=== PATIENT | female | born 1950 | race Caucasian/White ===

== ENCOUNTER 2017-11-12 11:47 | Outpatient (CLI) | payer MEDICARE, OTHER ==
[~2017-11-12] VITALS: Ht 154.9 cm; Wt 84.8 kg
[2017-11-12 11:00] VITALS: BP 86/52
[2017-11-12] MEDS ORDERED: NS IV 1000 ML 1,000 ML ONE (12:03)
[2017-11-12] MEDS ORDERED: ONDANSETRON 4 MG/2 ML (SDV) Z0FRAN ONE (12:04)
[2017-11-12 12:09] LABS: BILIRUBIN,URINE NEGATIVE (NEGATIVE); CLARITY,URINE CLEAR; COLOR,URINE YELLOW; GLUCOSE, URINE (UA) NEGATIVE (NEGATIVE); KETONES,URINE NEGATIVE (NEGATIVE); LEUKOCYTE ESTERASE ,URINE NEGATIVE (NEGATIVE); NITRITE,URINE NEGATIVE (NEGATIVE); PH,URINE 7 (5-9); PROTEIN,URINE 1+ (NEGATIVE); UROBILINOGEN,URINE 1 MG/DL (NORMAL)
[2017-11-12 12:18] LABS: BACTERIA,URINE TRACE /HPF; WBC,URINE RARE /HPF
--- NOTE | 2017-11-12 12:22 | Diagnostic Imaging Report ---
INDICATION: Shortness of breath and nausea. TIME OF EXAM: 12:11 PM COMPARISON: No prior studies are available for comparison. FINDINGS: The heart size is normal. The lungs appear clear. No infiltrate is identified. No effusion or pneumothorax is seen. IMPRESSION: No acute cardiopulmonary process is detected. Dictated by: Dictated on workstation # [id number]
[2017-11-12] MEDS ORDERED: ONDANSETRON 4 MG/2 ML (SDV) Z0FRAN IV PRN (12:45)
[2017-11-12] MEDS ORDERED: NS IV 1000 ML 1,000 ML IV ONE (12:45)
[2017-11-12] MEDS ORDERED: PANTOPRAZOLE 40 MG/10 ML (PROTONIX) VIAL ONE (14:35)
[2017-11-12] MEDS ORDERED: PANTOPRAZOLE 40 MG/10 ML (PROTONIX) VIAL IV ONE (14:45)
[2017-11-12 14:55] VITALS: BP 151/78
--- NOTE | 2017-11-12 15:25 | HISTORY AND PHYSICAL ---
DATE OF SERVICE: ATTENDING PRIMARY CARE PHYSICIAN: Edilson Sanchez DO HISTORY OF PRESENT ILLNESS: The patient is a 67-year-old female known to us. We have seen her several years ago for symptomatic cholelithiasis and status post a laparoscopic cholecystectomy. She reports that she initially developed pain in the lower quadrants of her abdomen, which is crampy in nature. She states that this was approximately 1 week ago and the pain got so bad that she was seen at an urgent care and she was started on Bactrim. She reports that she took 2 days of the Bactrim and the pain resolved, but she developed nausea and vomiting as well as diarrhea. Upon further questioning, she does report that she has had adverse reaction to Bactrim in the past. She states that she does not have any significant abdominal pain. Again, majority of her symptomatology comes as nausea and vomiting as well as diarrhea with her last episode this morning. She does not report any red blood per rectum or any dark tarry stools. She also does not report any hematemesis or coffee-ground emesis. She did have laboratory work done as well as a CT scan of the abdomen and pelvis yesterday, which appeared normal. Upon examination, she does again looked nauseous; however, does not have any abdominal pain. This may represent a gastroenteritis that may be from a viral etiology versus an atypical allergic reaction. The potential for colitis also does arise from taking previous antibiotics. PAST MEDICAL HISTORY: Hypertension, obstructive sleep apnea, degenerative joint disease, congestive heart failure. PAST SURGICAL HISTORY: Laparoscopic cholecystectomy, right knee arthroscopy, tubal ligation, tonsillectomy. ALLERGIES: To BACTRIM. MEDICATIONS: Losartan/hydrochlorothiazide 100/25 mg daily, lisinopril 10 mg daily, Levothyroxine 50 mcg daily, omeprazole 20 mg daily. SOCIAL HISTORY: Negative smoking, negative alcohol. FAMILY HISTORY: Mother had oropharyngeal cancer. Brother had prostate cancer. Father had myocardial infarction age 53. VITAL SIGNS: Stable and afebrile. REVIEW OF SYSTEMS: This is a well-nourished female, currently in no acute distress. She is not experiencing any shortness of breath or difficulty breathing. No chest pain, palpitations or diaphoresis. One-week history of nausea and vomiting as well as diarrhea. No red blood per rectum, no dark tarry stools. No fever or chills, no recent inadvertent weight loss. All other review of systems negative. PHYSICAL EXAMINATION: CHEST: Clear. A few scattered rales bilaterally. HEART: Regular, no murmurs. EXTREMITIES: +1/3 bilateral lower extremity edema. Negative Homans sign. HEENT: No scleral icterus. No cervical lymphadenopathy. ABDOMEN: Soft, nontender, nondistended. SKIN: Warm and dry. ASSESSMENT AND PLAN: A 67-year-old female with nausea, vomiting and diarrhea, most likely secondary to gastroenteritis versus atypical allergic reaction. The possibility of bacterial overgrowth of the colon also arises due to her previous antibiotic usage. We will proceed with outpatient IV hydration as well as IV Protonix. If she feels better and able to take in adequate amounts of oral liquids, we will discharge her home and start her on Protonix 40 mg daily as well as antinausea with Zofran and Phenergan p.r.n. We will also empirically treat her for a bacterial overgrowth of the colon with Flagyl. Job ID: [id number] DocumentID: [id number] Dictated Date: 11/12/2017 14:58:15 Factory Assembler Date: 11/12/2017 15:25:28 Dictated By: SRIRAM OLIVER MD [facility]
== END 2017-11-12 14:55 | disposition home or self-care (01) ==
LOC: SDC 11:47
PROVIDERS: ATTEND Nurse Practitioner Family
DX: R11.2 Nausea with vomiting, unspecified (principal); R19.7 Diarrhea, unspecified; E86.0 Dehydration; R06.02 Shortness of breath; R53.83 Other fatigue
CPT/HCPCS: 71045; 81000; 96361; 96374; 96375

== ENCOUNTER → 2020-08-09 | Outpatient (CLI) | payer MEDICARE ==
[~2020-08-09] MED LIST: CATHETER FLUSH 10 ML SYR IV PRN; HOLD METFORMIN - RECEIVED CONTRAST 20 ML VIAL IV SCH; IOHEXOL 350 MG/ML 100 ML (OMNIPAQUE 350) VIAL IV ONE; NS 100 ML (IVPB) BAG IV ONE
--- NOTE | 2020-08-09 12:59 | Diagnostic Imaging Report ---
PROCEDURE: CT chest with contrast, CT abdomen and pelvis with and without contrast. TECHNIQUE: Pre and post intravenous contrast axial imaging of the abdomen and pelvis and post contrast axial imaging of the chest were performed. Auto Exposure Controls were utilized during the CT exam to meet ALARA standards for radiation dose reduction. INDICATION: Breast cancer. No prior studies are available for comparison. CT CHEST: 1. No definite axillary lymphadenopathy is identified. No mediastinal or hilar lymphadenopathy is detected. No pericardial or pleural fluid is identified. No pulmonary infiltrates, nodules or masses are detected. Bony structures are unremarkable. IMPRESSION: Unremarkable CT of the chest. CT ABDOMEN AND PELVIS: No focal liver mass is identified. Gallbladder surgically absent. There is no biliary ductal dilatation. The pancreas and spleen are unremarkable. No adrenal mass is detected. Kidneys are unremarkable. Aorta is partially calcified but nonaneurysmal. There are normal-sized lymph nodes in the central right retroperitoneum. No adenopathy is identified. Small and large bowel loops are normal caliber. There is moderate stool in the colon. There is no free fluid or fluid collection identified. The bladder and uterus are unremarkable. No pelvic lymphadenopathy is seen. No osteosclerotic lesions are seen. IMPRESSION: Unremarkable CT of the abdomen and pelvis. No lymphadenopathy or evidence of metastatic disease is identified. Dictated by: Dictated on workstation # [id number]
--- NOTE | 2020-08-09 18:35 | Diagnostic Imaging Report ---
INDICATION: Breast carcinoma. The patient was administered 26.7 mCi technetium 99m MDP intravenously and whole-body imaging was performed after a 3 hour delay. COMPARISON: No prior bone scans are available for comparison. There is normal uptake of activity by the axial and appendicular skeleton. There is uptake by both kidneys with excretion into the urinary bladder. There appears to be some degenerative uptake in the lower lumbar spine. There is degenerative uptake in the bilateral knees and feet. No suspicious focus is identified to suggest osseous metastatic disease. IMPRESSION: No scintigraphic evidence of osseous metastatic disease. Dictated by: Dictated on workstation # [id number]
== END ==
LOC: CARD 12:00
PROVIDERS: ATTEND Internal Medicine Hematology & Oncology
DX: C50.911 Malignant neoplasm of unspecified site of right female breast (principal); Z90.49 Acquired absence of other specified parts of digestive tract
CPT/HCPCS: 71260; 74178; 78306; A9503

== ENCOUNTER 2020-10-01 05:36 | Outpatient (CLI) | payer MEDICARE, OTHER ==
[~2020-10-01] VITALS: Ht 154.9 cm; Wt 77.3 kg
[2020-10-01] MEDS ORDERED: LETR2.5T6 PO (08:57)
[2020-10-01] MEDS ORDERED: LOSA1TAB26 PO (08:57)
[2020-10-01] MEDS ORDERED: LEVO50CA4 PO (08:57)
[2020-10-01] MEDS ORDERED: PANT40TA52 PO (08:57)
== END 2020-10-01 09:21 | disposition home or self-care (01) ==
LOC: PREOP 05:36
PROVIDERS: ATTEND Obstetrics & Gynecology
DX: Z01.818 Encounter for other preprocedural examination (principal)

== ENCOUNTER 2020-10-03 06:11 | Day surgery (SDC) | payer MEDICARE, OTHER ==
--- NOTE | 2020-09-26 07:08 | HISTORY AND PHYSICAL ---
DATE OF SERVICE: DATE OF ADMISSION: 10/03/2020. ADMITTING PRIMARY CARE PHYSICIAN: Edilson Sancehz DO. HISTORY OF PRESENT ILLNESS: The patient is a 70-year-old female, well known to us. She had a longstanding history of gastroesophageal reflux disease as well as dysphagia. She had multiple EGDs and was found to have a significant size hiatal hernia, 3 to 4 cm in size. She eventually did elect to undergo a laparoscopic hiatal hernia repair as well as a Toupet posterior 270-degree antireflux wrap on 09/12/2019. She was found to have a right breast mass, which she stated that she detected on her own. She stated that she had not had a mammogram for approximately three years. The lesion was at approximately the 12 o'clock position of the right breast around zone 3. She then underwent a biopsy, which did come back as an invasive lobular carcinoma, ER/[place] positive as well as HER-2 negative. She was referred to oncology and started letrozole aromatase inhibitor and the lesion has shrunk. Upon examination today, the lesion is still palpable; however, smaller in size. She does not have any adenopathy nor other palpable lesions. She reports that she began menses at around age 14 and menopause in her early 40s. She has been 4 times and given four live births. She has never had any previous breast biopsies before and does not report any abnormal breast discharge or any asymmetries. She also does not report any oral contraceptive use. The initial lesion was approximately 2.06 cm in largest diameter. PAST MEDICAL HISTORY: Hypertension, hypothyroid, gastroesophageal reflux disease, obstructive sleep apnea, congestive heart failure, and degenerative joint disease. PAST SURGICAL HISTORY: Laparoscopic cholecystectomy in 2012, right knee arthroscopy in 08/2011, tubal ligation in 1988, tonsillectomy, laparoscopic hiatal hernia repair and Toupet posterior wrap 09/2019. ALLERGIES: BACTRIM, LASIX, and ADHESIVE TAPES. MEDICATIONS: 1. Losartan/hydrochlorothiazide 100/12.5 mg daily. 2. Protonix 40 mg daily. 3. Levothyroxine 50 mcg daily. SOCIAL HISTORY: Negative smoke, negative alcohol. FAMILY HISTORY: Mother oropharyngeal cancer, hypertension. Father, hypertension, myocardial infarction. REVIEW OF SYSTEMS: A well-nourished female currently in no acute distress. She is not experiencing any shortness of breath or difficulty breathing. No chest pain, palpitations, diaphoresis. No nausea, vomiting, no diarrhea or constipation. No fever, chills, and no recent inadvertent weight loss. All other review of systems negative. PHYSICAL EXAMINATION: VITAL SIGNS: Blood pressure 160/90. Current weight 174 pounds at 5 feet 1 inch. CHEST: Clear. Good breath sounds bilaterally. HEART: Regular and no murmurs. EXTREMITIES: No lower extremity edema, negative Homans sign. HEENT: No scleral icterus. NECK: No cervical lymphadenopathy. ABDOMEN: Soft, nontender, and nondistended. BREASTS: There is a palpable lesion at the right 12 o'clock position at approximately zone 2 to zone 3. There are no other palpable lesions. There is no axillary or supraclavicular adenopathy. ASSESSMENT AND PLAN: A 70-year-old female with a right breast invasive lobular carcinoma, histologic grade II/III, nuclear pleomorphism 2/3, mitotic rate 103. Overall, grade II, which is ER/W[place] positive, her-2 negative. The lesion at largest diameter was approximately 2 cm; however, has responded well to aromatase inhibitor. We will proceed with a lumpectomy as well as a sentinel node biopsy. Job ID: [id number] DocumentID: [id number] Dictated Date: 09/24/2020 17:23:59 Feed Crusher Date: 09/24/2020 17:52:32 Dictated By: SRIRAM OLIVER MD
[~2020-10-03] VITALS: Ht 154 cm; Wt 77.3 kg
[2020-10-03] VITALS (12 sets, daily range): BP systolic 150–188; BP diastolic 61–89
[~2020-10-03 06:11] MED LIST changes: -CATHETER FLUSH 10 ML SYR IV PRN; -HOLD METFORMIN - RECEIVED CONTRAST 20 ML VIAL IV SCH; -IOHEXOL 350 MG/ML 100 ML (OMNIPAQUE 350) VIAL IV ONE; +LETR2.5T6 PO; +LEVO50CA4 PO; +LOSA1TAB26 PO; -NS 100 ML (IVPB) BAG IV ONE; +PANT40TA52 PO
[2020-10-03] MEDS: LACTATED RINGERS 1,000 ML IV PRN ×2 (06:39→15:23)
[2020-10-03] MEDS ORDERED: ACET325T38 PO (06:42)
[2020-10-03] MEDS ORDERED: ceFAZolin 2 GM IV Premixed 50 ML ONE (08:27)
--- NOTE | 2020-10-03 08:29 | Progress Note-Pre Operative ---
Pre-Operative Progress Note H&P Reviewed The H&P was reviewed, patient examined and no changes noted. Date Seen by Provider: Oct 03, 2020 Time Seen by Provider: 08:25 Date H&P Reviewed: Oct 03, 2020 Time H&P Reviewed: 08:20 Pre-Operative Diagnosis: Right breast cancer DORA CRAIN APRN Oct 03, 2020 08:29
[2020-10-03] MEDS ORDERED: ACETAMINOPHEN 325 MG TABLET PO PRN (08:30)
[2020-10-03] MEDS ORDERED: morphine INJ 10 MG/ML 1ML (SYR OR VIAL) IVP PRN (08:30)
[2020-10-03] MEDS ORDERED: HYDROcodone/APAP 5 MG/325 MG (LORTAB) TAB PO ONE (08:30)
[2020-10-03] MEDS ORDERED: ONDANSETRON 4 MG/2 ML (SDV) Z0FRAN IVP PRN ×2 (08:30→16:15)
[2020-10-03] MEDS ORDERED: HYDR-3817 PO (08:32)
--- NOTE | 2020-10-03 08:32 | Discharge Inst-Surgical ---
D/C Lap Instructions-KIDO Reconcile Patient Problems Problems Reviewed?: Yes New, Converted, or Re-Newed RX: RX on Chart Follow Up Appt in 2 weeks Activity as tolerated No driving for 24 hours No driving while on pain medications Incentive Spirometry use every 2 hours while awake Regular Diet Symptoms to Report: Fever over 101 degree F, Nausea/Vomiting Infection Signs and Symptoms to report: Increased redness, Foul odor of wound, Increased drainage Bathing instructions: May shower Operative Area Clean/Dry; Keep incision clean/dry If any problems/questions: Contact your physician or go to Emergency Room DORA CRAIN APRN Oct 03, 2020 08:32
--- NOTE | 2020-10-03 09:32 | Diagnostic Imaging Report ---
Indication: Breast carcinoma. Total of 1.1 mCi of technetium 99m sulfur colloid was injected in 4 separate aliquots in a periareolar distribution of the right breast. Imaging was performed. The images demonstrate activity around the right breast areola. There is migration of activity into the right axilla consistent with sentinel node. This was marked on the patient's skin. IMPRESSION: Right breast lymphoscintigraphy for identification of sentinel nodes. Dictated by: Dictated on workstation # [id number]
[2020-10-03] MEDS ORDERED: MIDAZOLAM 2 MG/2 ML (VERSED) VIAL ONE ×2 (11:41→12:07)
[2020-10-03] MEDS ORDERED: MIDAZOLAM 2 MG/2 ML (VERSED) VIAL IVP ONE (11:45)
[2020-10-03] MEDS ORDERED: LIDOCAINE/EPI 1%-1:200,000 (XYLOCAINE) 30 ML VIAL ONE (11:52)
[2020-10-03] MEDS ORDERED: LIDOCAINE PF 2% 5 ML (XYLOCAINE) VIAL ONE (12:07)
[2020-10-03] MEDS ORDERED: ONDANSETRON 4 MG/2 ML (SDV) Z0FRAN ONE (12:07)
[2020-10-03] MEDS ORDERED: fentaNYL INJ 100 MCG/2 ML AMP ONE (12:07)
[2020-10-03] MEDS ORDERED: proPOfol 200 MG/20 ML (DIPRIVAN) VIAL IV ONE (12:07)
[2020-10-03] MEDS ORDERED: METHYLENE BLUE 0.5% (PROVAYBLUE) 50 mg/10 ml vial IV ONE (14:10)
[2020-10-03] MEDS ORDERED: SEVOFLURANE (ULTANE) 15 ML INHAL SOLN ONE ×2 (15:06→15:23)
--- NOTE | 2020-10-03 16:09 | Progress Note-Post Operative ---
Post-Operative Progess Note Surgeon (s)/Green Chain Off Bearer (s) Surgeon SRIRAM OLIVER MD Green Chain Off Bearer: carey varner AUDIT LEAD Pre-Operative Diagnosis Right breast cancer Post-Operative Diagnosis same Procedure & Operative Findings Date of Procedure 10/03/20 Procedure Performed/Findings right breast lumpectomy and sentinel node bx Anesthesia Type general LMA Estimated Blood Loss Estimated blood loss (mL): minimal Specimens/Packing Specimens Removed right breast lumpectomy and sentinel node bx. SRIRAM OLIVER MD Oct 03, 2020 16:09
[2020-10-03] MEDS ORDERED: fentaNYL INJ 100 MCG/2 ML AMP IVP ONE (16:15)
[2020-10-03] MEDS ORDERED: morphine INJ 10 MG/ML 1ML (SYR OR VIAL) IVP ONE (16:15)
[2020-10-03] MEDS ORDERED: MEPERIDINE (DEMEROL) INJ 50 MG/ML IVP ONE (16:15)
[2020-10-03] MEDS ORDERED: HYDROcodone/APAP 7.5 MG/325 MG (LORTAB, LORCET PLUS) TABLET PO PRN (17:30)
[2020-10-03] MEDS ORDERED: fentaNYL INJ 100 MCG/2 ML AMP IVP PRN (17:30)
--- NOTE | 2020-10-03 17:32 | Anesthesia-General Post-Op ---
General Patient Condition Mental Status/LOC: Same as Preop Cardiovascular: Satisfactory Nausea/Vomiting: Absent Respiratory: Satisfactory Pain: Controlled Complications: Absent Post Op Complications Complications None Follow Up Care/Instructions Patient Instructions None needed. Anesthesia/Patient Condition Patient Condition Patient is doing well, no complaints, stable vital signs, no apparent adverse anesthesia problems. No complications reported per nursing. SABRINA CUBA CRNA Oct 03, 2020 17:32
[2020-10-03] MEDS: 1/2 NS IV SOLUTION 1,000 ML IV SCH ×2 (18:51→23:05)
--- NOTE | 2020-10-03 20:11 | OPERATIVE REPORT ---
DATE OF SERVICE: 10/03/2020 ATTENDING PRIMARY CARE PHYSICIAN: Dr. Edilson Sanchez. PREOPERATIVE DIAGNOSIS: Right infiltrating lobular carcinoma breast carcinoma. POSTOPERATIVE DIAGNOSES: Right infiltrating lobular carcinoma breast carcinoma with positive sentinel lymph node, negative lumpectomy margins. PROCEDURE: Lumpectomy and sentinel node biopsy. Submucosal injection of isosulfan blue. SURGEON: Sriram Oliver MD. FISH FROG OR OYSTER FARMER: Manuel Eddy APRN. ANESTHESIA: General laryngeal mask airway with local. ESTIMATED BLOOD LOSS: Minimal. FINDINGS: Solitary sentinel lymph node positive, lumpectomy margins grossly negative. DISPOSITION: The patient tolerated the procedure well. INDICATIONS: The patient is a 70-year-old female known to us. She has a longstanding history of issues with reflux and was found to have a significant size hiatal hernia, which was eventually repaired on 09/12/2019. She was found to have a right breast mass, which she detected on her own. She states that she has not had a mammogram for approximately 3 years. She did have a biopsy, which did come back as an invasive lobular carcinoma, which was ER/[place] positive and HER2 negative. She was referred to oncology and started on letrozole aromatase inhibitor and lesion shrink in size. Upon examination in the office, the lesion was still palpable; however, smaller in size. She did not have any adenopathy. She reports beginning menses at around age 14 and menopause in her early 40s. She has been 4 times and given four live births. She has not had any previous breast biopsies before and does not report any abnormal breast discharge or asymmetries. She does not report taking oral contraceptives in the past. Her initial lesion was approximately 2 cm in largest diameter. The recommendation was made to proceed with a simple mastectomy due to the size of her breast and the location of the lesion as well as a sentinel node; however, the patient did not want to have such an invasive procedure done and wanted to proceed with just the lumpectomy and sentinel node biopsy for staging purposes. DESCRIPTION OF PROCEDURE: The patient was brought to the operating room, laid supine on the table. After adequate IV pain and sedative medications and general laryngeal mask airway intubation, we first proceeded with subdermal injection of isosulfan blue in 4 quadrants of the nipple areolar complex. Before this, she also underwent nuclear medicine lymphoscintigraphy. We first proceeded with excision of the sentinel node along the anterior axillary line. A skin incision was made using a 15 blade after the skin and subcutaneous tissue were anesthetized using 0.5% Marcaine with epinephrine. The subcutaneous tissue was then dissected down and the clavipectoral fascia was opened using electrocautery. We then proceeded with blunt dissection, identifying the sentinel node with the gamma probe as well as a blue lymph node identified, which was completely dissected out using electrocautery and sent to pathology. The frozen section was positive; however, again the patient did not want any more invasive procedures performed. At this time, good hemostasis was observed, and the fascia was closed using interrupted 3-0 Vicryl suture. Subcutaneous tissue was then reapproximated with the same suture and skin was closed using 4-0 Monocryl running subcuticular suture. We then proceeded with excision of the breast mass, which was at approximately 1 o'clock position of the right breast at zone II to III. A curvilinear skin incision was made using a 15 blade after the skin was anesthetized using 0.5% Marcaine with epinephrine. The lesion was then fully excised using electrocautery as well as blunt dissection to the depth of the chest wall. Yuni clamps were used to dissect a good wedge of normal appearing breast tissue. The specimen was marked and sent to pathology, which was grossly negative. Good hemostasis was observed. This was then irrigated with water and reapproximated. The breast tissue was then loosely approximated using 3-0 Vicryl suture and the skin was closed using 4-0 Monocryl running subcuticular suture. Wounds were then cleaned and covered with Dermabond. The patient tolerated the procedure well. We will admit her 23-hour observation for pain control for she has no one at home as well as for DVT prophylaxis with early ambulation as well as antinausea medications. These results will be given to oncology where she will be given the options for further therapy, which would likely include IV chemotherapy as well as radiation; however, we are unsure if she will be amenable to further therapy. Job ID: [id number] DocumentID: [id number] Dictated Date: 10/03/2020 16:23:01 Senior Solutions Engineer Date: 10/03/2020 20:09:59 Dictated By: SRIRAM OLIVER MD
[2020-10-04] VITALS: BP 153/83
[2020-10-04 04:36] VITALS: BP 158/84
[2020-10-04 09:06] VITALS: BP 162/72
[2020-10-04] MEDS: 1/2 NS IV SOLUTION 1,000 ML IV SCH (09:14)
[2020-10-04 10:48] VITALS: BP 170/73
[2020-10-04 10:57] VITALS: BP 169/70
[2020-10-04 11:58] VITALS: BP 169/70
== END 2020-10-04 11:58 ==
LOC: CARD 06:11 → 4TH 15:16 → CARD 10-04 11:58
PROVIDERS: ATTEND Surgery
DX: C50.211 Malignant neoplasm of upper-inner quadrant of right female breast (principal); C77.3 Secondary and unspecified malignant neoplasm of axilla and upper limb lymph nodes; E03.9 Hypothyroidism, unspecified; G47.33 Obstructive sleep apnea (adult) (pediatric); I11.0 Hypertensive heart disease with heart failure; I50.9 Heart failure, unspecified; F32.9 Major depressive disorder, single episode, unspecified; K21.9 Gastro-esophageal reflux disease without esophagitis; M19.90 Unspecified osteoarthritis, unspecified site; Z91.048 Other nonmedicinal substance allergy status; Z79.899 Other long term (current) drug therapy; Z79.890 Hormone replacement therapy
CPT/HCPCS: 19301; 38525; 38900; 78195; 87081; 94664; A9541

== ENCOUNTER 2020-10-25 09:32 | Outpatient (RCR) | payer MEDICARE, OTHER ==
[2020-07-31 10:13] LABS: BASOPHILS # (AUTO) 0.1 10^3/uL (0.0-0.1); BASOPHILS % (AUTO) 1 % (0-10); EOSINOPHILS # (AUTO) 0.1 10^3/uL (0.0-0.3); EOSINOPHILS % (AUTO) 1 % (0-10); HEMATOCRIT 46 % (35-52); HEMOGLOBIN 15.5 g/dL (11.5-16.0); LYMPHOCYTES # (AUTO) 1.2 10^3/uL (1.0-4.0); LYMPHOCYTES % (AUTO) 16 % (12-44); MEAN CORPUSCULAR HEMOGLOBIN 33 pg (25-34); MEAN CORPUSCULAR HGB CONC 34 g/dL (32-36); MEAN CORPUSCULAR VOLUME 96 fL (80-99); MONOCYTES # (AUTO) 0.7 10^3/uL (0.0-1.0); MONOCYTES % (AUTO) 9 % (0-12); NEUTROPHILS # (AUTO) 5.5 10^3/uL (1.8-7.8); NEUTROPHILS % (AUTO) 73 % (42-75); PLATELET COUNT 219 10^3/uL (130-400); WHITE BLOOD COUNT 7.6 10^3/uL (4.3-11.0)
[2020-07-31 10:33] LABS: ALANINE AMINOTRANSFERASE 14 U/L (0-55); ALBUMIN 4.2 GM/DL (3.2-4.5); ALKALINE PHOSPHATASE 97 U/L (40-136); BILIRUBIN,TOTAL 1.6 MG/DL (0.1-1.0); BUN/CREATININE RATIO 14; CALCIUM 8.9 MG/DL (8.5-10.1); CARBON DIOXIDE 24 MMOL/L (21-32); CHLORIDE 97 MMOL/L (98-107); CREATININE SERUM 0.83 MG/DL (0.60-1.30); GFR ESTIMATED > 60; GLUCOSE 97 MG/DL (70-105); POTASSIUM 3.3 MMOL/L (3.6-5.0); SODIUM 134 MMOL/L (135-145); TOTAL PROTEIN 6.9 GM/DL (6.4-8.2)
[2020-09-18 10:01] LABS: BASOPHILS # (AUTO) 0.1 10^3/uL (0.0-0.1); BASOPHILS % (AUTO) 1 % (0-10); EOSINOPHILS # (AUTO) 0.1 10^3/uL (0.0-0.3); EOSINOPHILS % (AUTO) 2 % (0-10); HEMATOCRIT 43 % (35-52); HEMOGLOBIN 15.2 g/dL (11.5-16.0); LYMPHOCYTES # (AUTO) 1.2 10^3/uL (1.0-4.0); LYMPHOCYTES % (AUTO) 22 % (12-44); MEAN CORPUSCULAR HEMOGLOBIN 33 pg (25-34); MEAN CORPUSCULAR HGB CONC 35 g/dL (32-36); MEAN CORPUSCULAR VOLUME 94 fL (80-99); MEAN PLATELET VOLUME 10.7 fL (9.0-12.2); MONOCYTES # (AUTO) 0.6 10^3/uL (0.0-1.0); MONOCYTES % (AUTO) 11 % (0-12); NEUTROPHILS # (AUTO) 3.6 10^3/uL (1.8-7.8); NEUTROPHILS % (AUTO) 64 % (42-75); PLATELET COUNT 193 10^3/uL (130-400); WHITE BLOOD COUNT 5.7 10^3/uL (4.3-11.0)
[2020-09-18 10:20] LABS: ALANINE AMINOTRANSFERASE 14 U/L (0-55); ALBUMIN 4.1 GM/DL (3.2-4.5); ALKALINE PHOSPHATASE 88 U/L (40-136); BILIRUBIN,TOTAL 1.2 MG/DL (0.1-1.0); BUN/CREATININE RATIO 13; CALCIUM 9.3 MG/DL (8.5-10.1); CARBON DIOXIDE 28 MMOL/L (21-32); CHLORIDE 97 MMOL/L (98-107); GFR ESTIMATED > 60; GLUCOSE 114 MG/DL (70-105); POTASSIUM 3.7 MMOL/L (3.6-5.0); SODIUM 134 MMOL/L (135-145); TOTAL PROTEIN 6.9 GM/DL (6.4-8.2)
[~2020-10-25 09:32] MED LIST changes: +ACET325T38 PO; +HYDR-3817 PO
[2020-10-25 09:49] LABS: BASOPHILS # (AUTO) 0.1 10^3/uL (0.0-0.1); BASOPHILS % (AUTO) 1 % (0-10); EOSINOPHILS # (AUTO) 0.2 10^3/uL (0.0-0.3); EOSINOPHILS % (AUTO) 3 % (0-10); HEMATOCRIT 41 % (35-52); HEMOGLOBIN 14.2 g/dL (11.5-16.0); LYMPHOCYTES % (AUTO) 17 % (12-44); MEAN CORPUSCULAR HEMOGLOBIN 33 pg (25-34); MEAN CORPUSCULAR HGB CONC 34 g/dL (32-36); MEAN CORPUSCULAR VOLUME 96 fL (80-99); MEAN PLATELET VOLUME 10.7 fL (9.0-12.2); MONOCYTES # (AUTO) 0.6 10^3/uL (0.0-1.0); MONOCYTES % (AUTO) 10 % (0-12); NEUTROPHILS # (AUTO) 4.2 10^3/uL (1.8-7.8); NEUTROPHILS % (AUTO) 69 % (42-75); PLATELET COUNT 175 10^3/uL (130-400)
[2020-10-25 10:17] LABS: ALBUMIN 3.8 GM/DL (3.2-4.5); BILIRUBIN,TOTAL 1.3 MG/DL (0.1-1.0); CREATININE SERUM 0.83 MG/DL (0.60-1.30); POTASSIUM 3.7 MMOL/L (3.6-5.0); TOTAL PROTEIN 6.5 GM/DL (6.4-8.2)
== END 2020-10-29 | disposition home or self-care (01) ==
LOC: ONC 09:32
PROVIDERS: ATTEND Internal Medicine Hematology & Oncology
DX: C50.911 Malignant neoplasm of unspecified site of right female breast (principal); I11.9 Hypertensive heart disease without heart failure; E78.00 Pure hypercholesterolemia, unspecified; E03.9 Hypothyroidism, unspecified
CPT/HCPCS: 80053; 85025; G0463; 99213; 99214

== ENCOUNTER → 2021-01-07 | Outpatient (CLI) | payer MEDICARE, OTHER ==
--- NOTE | 2021-01-07 11:10 | Diagnostic Imaging Report ---
INDICATION: Postmenopausal state COMPARISON: None available FINDINGS: AP Spine L1-L4: [BMD (g/cm2): 0.914] [T-Score: -2.4] [Z-Score: -1.1] [BMD Previous: NA] [BMD % Change: NA] LT Hip Neck: [BMD (g/cm2): 0.660] [T-Score: -2.7] [Z-Score: -1.3] LT Hip Total: [BMD (g/cm2):0.746] [T-Score:-2.1] [Z-Score: -0.9] [BMD Previous: NA] [BMD % Change: NA] RT Hip Neck: [BMD (g/cm2):0.622] [T-Score:-3.0] [Z-Score:-1.5] RT Hip Total: [BMD (g/cm2):0.703] [T-score:-2.4] [Z-Score:-1.2] [BMD Previous:NA] [BMD % Change:NA] *Indicates significant change from prior examination based on 95% confidence level. World Health Organization criteria for BMD interpretation classify patients as Normal (T-score at or above -1.0), Osteopenic (T-score between -1.0 and -2.5) or Osteoporotic (T-score at or below -2.5). LIMITATIONS AND MODIFICATION: None. FRACTURE RISK (FRAX SCORE): The ten year probability of (%): Major Osteoporotic Fracture: [27.4] Hip Fracture: [8.9] IMPRESSION: 1. Osteoporosis. 2. Baseline examination. 3. See below National Osteoporosis Foundation guidelines on when to potentially initiate pharmacologic therapy. Based on the National Osteoporosis Foundation Guidelines, pharmacologic treatment should be initiated in any of the following, unless clinical conditions suggest otherwise: * Any patient with prior fragility fracture of the hip or vertebrae. A spine fracture indicates 5X risk for subsequent spine fracture and 2X risk for subsequent hip fracture. * Osteoporosis (T-score <-2.5). * Postmenopausal women and men age 50 and older with low bone mass/osteopenia (T-score between -1.0 and -2.5) by DXA and 10-year major osteoporotic fracture greater than 20% or a 10-year probability of hip fracture greater than 3%. These fracture risks are supplied above in the FRAX score, if applicable. * Clinician judgement and/or patient preferences may indicate treatment for people with 10-year fracture probabilities above or below these levels. Dictated by: Dictated on workstation # [id number]
== END ==
LOC: RAD 10:00
PROVIDERS: ATTEND Nurse Practitioner Adult Health
DX: M81.0 Age-related osteoporosis without current pathological fracture (principal); Z78.0 Asymptomatic menopausal state; Z79.811 Long term (current) use of aromatase inhibitors
CPT/HCPCS: 77080

== ENCOUNTER 2021-01-23 08:56 | Outpatient (RCR) | payer MEDICARE, OTHER ==
[2020-11-26 15:32] LABS: BASOPHILS # (AUTO) 0.1 10^3/uL (0.0-0.1); BASOPHILS % (AUTO) 1 % (0-10); EOSINOPHILS # (AUTO) 0.1 10^3/uL (0.0-0.3); EOSINOPHILS % (AUTO) 2 % (0-10); HEMATOCRIT 43 % (35-52); HEMOGLOBIN 15.3 g/dL (11.5-16.0); LYMPHOCYTES % (AUTO) 15 % (12-44); MEAN CORPUSCULAR HEMOGLOBIN 34 pg (25-34); MEAN CORPUSCULAR HGB CONC 35 g/dL (32-36); MEAN CORPUSCULAR VOLUME 95 fL (80-99); MONOCYTES # (AUTO) 0.9 10^3/uL (0.0-1.0); MONOCYTES % (AUTO) 15 % (0-12); NEUTROPHILS # (AUTO) 4.3 10^3/uL (1.8-7.8); NEUTROPHILS % (AUTO) 68 % (42-75); PLATELET COUNT 191 10^3/uL (130-400); WHITE BLOOD COUNT 6.4 10^3/uL (4.3-11.0)
[2020-11-26 15:49] LABS: ALBUMIN 4.4 GM/DL (3.2-4.5); BILIRUBIN,TOTAL 1.5 MG/DL (0.1-1.0); CALCIUM 9.8 MG/DL (8.5-10.1); CREATININE SERUM 0.84 MG/DL (0.60-1.30); POTASSIUM 3.7 MMOL/L (3.6-5.0); TOTAL PROTEIN 7.2 GM/DL (6.4-8.2)
[2020-12-11 08:50] LABS: BASOPHILS # (AUTO) 0.1 10^3/uL (0.0-0.1); BASOPHILS % (AUTO) 1 % (0-10); EOSINOPHILS # (AUTO) 0.2 10^3/uL (0.0-0.3); EOSINOPHILS % (AUTO) 4 % (0-10); HEMATOCRIT 43 % (35-52); HEMOGLOBIN 14.7 g/dL (11.5-16.0); LYMPHOCYTES # (AUTO) 0.6 10^3/uL (1.0-4.0); LYMPHOCYTES % (AUTO) 11 % (12-44); MEAN CORPUSCULAR HEMOGLOBIN 34 pg (25-34); MEAN CORPUSCULAR HGB CONC 34 g/dL (32-36); MEAN CORPUSCULAR VOLUME 97 fL (80-99); MEAN PLATELET VOLUME 10.6 fL (9.0-12.2); MONOCYTES # (AUTO) 0.7 10^3/uL (0.0-1.0); MONOCYTES % (AUTO) 13 % (0-12); NEUTROPHILS # (AUTO) 3.6 10^3/uL (1.8-7.8); NEUTROPHILS % (AUTO) 70 % (42-75); PLATELET COUNT 162 10^3/uL (130-400); WHITE BLOOD COUNT 5.1 10^3/uL (4.3-11.0)
[2020-12-11 09:15] LABS: BILIRUBIN,TOTAL 1.5 MG/DL (0.1-1.0); CALCIUM 9.6 MG/DL (8.5-10.1); CREATININE SERUM 0.83 MG/DL (0.60-1.30); POTASSIUM 3.9 MMOL/L (3.6-5.0); TOTAL PROTEIN 6.4 GM/DL (6.4-8.2)
[2021-01-02 09:15] LABS: BASOPHILS # (AUTO) 0.1 10^3/uL (0.0-0.1); BASOPHILS % (AUTO) 1 % (0-10); EOSINOPHILS # (AUTO) 0.1 10^3/uL (0.0-0.3); EOSINOPHILS % (AUTO) 2 % (0-10); HEMATOCRIT 42 % (35-52); HEMOGLOBIN 14.8 g/dL (11.5-16.0); LYMPHOCYTES # (AUTO) 0.4 10^3/uL (1.0-4.0); LYMPHOCYTES % (AUTO) 9 % (12-44); MEAN CORPUSCULAR HEMOGLOBIN 33 pg (25-34); MEAN CORPUSCULAR HGB CONC 35 g/dL (32-36); MEAN CORPUSCULAR VOLUME 94 fL (80-99); MEAN PLATELET VOLUME 10.3 fL (9.0-12.2); MONOCYTES # (AUTO) 0.5 10^3/uL (0.0-1.0); MONOCYTES % (AUTO) 10 % (0-12); NEUTROPHILS # (AUTO) 3.8 10^3/uL (1.8-7.8); NEUTROPHILS % (AUTO) 79 % (42-75); PLATELET COUNT 183 10^3/uL (130-400); WHITE BLOOD COUNT 4.8 10^3/uL (4.3-11.0)
[2021-01-02 09:39] LABS: BILIRUBIN,TOTAL 1.4 MG/DL (0.1-1.0); CALCIUM 9.5 MG/DL (8.5-10.1); CREATININE SERUM 0.82 MG/DL (0.60-1.30); POTASSIUM 3.8 MMOL/L (3.6-5.0); TOTAL PROTEIN 6.7 GM/DL (6.4-8.2)
[2021-01-23 09:06] LABS: BASOPHILS # (AUTO) 0.1 10^3/uL (0.0-0.1); BASOPHILS % (AUTO) 1 % (0-10); EOSINOPHILS # (AUTO) 0.1 10^3/uL (0.0-0.3); EOSINOPHILS % (AUTO) 2 % (0-10); HEMATOCRIT 42 % (35-52); HEMOGLOBIN 14.8 g/dL (11.5-16.0); LYMPHOCYTES # (AUTO) 0.6 10^3/uL (1.0-4.0); LYMPHOCYTES % (AUTO) 11 % (12-44); MEAN CORPUSCULAR HEMOGLOBIN 34 pg (25-34); MEAN CORPUSCULAR HGB CONC 35 g/dL (32-36); MEAN CORPUSCULAR VOLUME 96 fL (80-99); MEAN PLATELET VOLUME 10.1 fL (9.0-12.2); MONOCYTES # (AUTO) 0.7 10^3/uL (0.0-1.0); MONOCYTES % (AUTO) 15 % (0-12); NEUTROPHILS # (AUTO) 3.5 10^3/uL (1.8-7.8); NEUTROPHILS % (AUTO) 70 % (42-75); PLATELET COUNT 187 10^3/uL (130-400)
[2021-01-23 09:23] LABS: ALBUMIN 4.1 GM/DL (3.2-4.5); BILIRUBIN,TOTAL 1.4 MG/DL (0.1-1.0); CALCIUM 9.6 MG/DL (8.5-10.1); CREATININE SERUM 0.84 MG/DL (0.60-1.30); POTASSIUM 3.4 MMOL/L (3.6-5.0); TOTAL PROTEIN 6.7 GM/DL (6.4-8.2)
== END 2021-02-02 | disposition home or self-care (01) ==
LOC: ONC 08:56
PROVIDERS: ATTEND Internal Medicine Hematology & Oncology
DX: C50.911 Malignant neoplasm of unspecified site of right female breast (principal); C77.3 Secondary and unspecified malignant neoplasm of axilla and upper limb lymph nodes; I11.9 Hypertensive heart disease without heart failure; E78.00 Pure hypercholesterolemia, unspecified; E03.9 Hypothyroidism, unspecified; Z79.811 Long term (current) use of aromatase inhibitors; Z98.890 Other specified postprocedural states; Z90.11 Acquired absence of right breast and nipple
CPT/HCPCS: 77280; 77290; 77295; 77300; 77307; 77334; 77336; 77417; 77470; 80053; 82306; 85025; 99204; 99213; 99214

== ENCOUNTER 2021-02-20 10:50 | Outpatient (RCR) | payer MEDICARE, OTHER ==
[2021-02-13 09:16] LABS: BASOPHILS # (AUTO) 0.1 10^3/uL (0.0-0.1); BASOPHILS % (AUTO) 1 % (0-10); EOSINOPHILS # (AUTO) 0.1 10^3/uL (0.0-0.3); EOSINOPHILS % (AUTO) 3 % (0-10); HEMATOCRIT 42 % (35-52); HEMOGLOBIN 14.9 g/dL (11.5-16.0); LYMPHOCYTES # (AUTO) 0.7 10^3/uL (1.0-4.0); LYMPHOCYTES % (AUTO) 13 % (12-44); MEAN CORPUSCULAR HEMOGLOBIN 34 pg (25-34); MEAN CORPUSCULAR HGB CONC 35 g/dL (32-36); MEAN CORPUSCULAR VOLUME 96 fL (80-99); MEAN PLATELET VOLUME 10.2 fL (9.0-12.2); MONOCYTES # (AUTO) 0.7 10^3/uL (0.0-1.0); MONOCYTES % (AUTO) 14 % (0-12); NEUTROPHILS # (AUTO) 3.6 10^3/uL (1.8-7.8); NEUTROPHILS % (AUTO) 70 % (42-75); PLATELET COUNT 186 10^3/uL (130-400); WHITE BLOOD COUNT 5.1 10^3/uL (4.3-11.0)
[2021-02-13 09:35] LABS: ALBUMIN 4.1 GM/DL (3.2-4.5); BILIRUBIN,TOTAL 1.3 MG/DL (0.1-1.0); CALCIUM 9.4 MG/DL (8.5-10.1); CREATININE SERUM 0.86 MG/DL (0.60-1.30); POTASSIUM 3.7 MMOL/L (3.6-5.0); TOTAL PROTEIN 6.8 GM/DL (6.4-8.2)
[~2021-02-20 10:50] MED LIST changes: +DENOSUMAB 60 MG/1 ML (PROLIA) CANCER CTR SQ SCH
== END 2021-04-04 | disposition home or self-care (01) ==
LOC: ONC 10:50
PROVIDERS: ATTEND Internal Medicine Hematology & Oncology
DX: Z51.0 Encounter for antineoplastic radiation therapy (principal); C50.411 Malignant neoplasm of upper-outer quadrant of right female breast; C77.3 Secondary and unspecified malignant neoplasm of axilla and upper limb lymph nodes; I11.9 Hypertensive heart disease without heart failure; I65.29 Occlusion and stenosis of unspecified carotid artery; E78.00 Pure hypercholesterolemia, unspecified; E03.9 Hypothyroidism, unspecified; M81.0 Age-related osteoporosis without current pathological fracture; E66.9 Obesity, unspecified; Z90.11 Acquired absence of right breast and nipple; Z78.0 Asymptomatic menopausal state
CPT/HCPCS: 80053; 85025; 96372; G0463; 77336; 99213

== ENCOUNTER → 2021-04-30 | Outpatient (CLI) | payer MEDICARE, OTHER ==
[~2021-04-30] MED LIST changes: -DENOSUMAB 60 MG/1 ML (PROLIA) CANCER CTR SQ SCH
[2021-04-30 08:30] LABS: BASOPHILS # (AUTO) 0.1 10^3/uL (0.0-0.1); BASOPHILS % (AUTO) 1 % (0-10); EOSINOPHILS # (AUTO) 0.1 10^3/uL (0.0-0.3); EOSINOPHILS % (AUTO) 2 % (0-10); HEMATOCRIT 43 % (35-52); HEMOGLOBIN 15.3 g/dL (11.5-16.0); LYMPHOCYTES # (AUTO) 0.7 10^3/uL (1.0-4.0); LYMPHOCYTES % (AUTO) 13 % (12-44); MEAN CORPUSCULAR HEMOGLOBIN 33 pg (25-34); MEAN CORPUSCULAR HGB CONC 35 g/dL (32-36); MEAN CORPUSCULAR VOLUME 94 fL (80-99); MEAN PLATELET VOLUME 10.4 fL (9.0-12.2); MONOCYTES # (AUTO) 0.6 10^3/uL (0.0-1.0); MONOCYTES % (AUTO) 11 % (0-12); NEUTROPHILS # (AUTO) 3.8 10^3/uL (1.8-7.8); NEUTROPHILS % (AUTO) 73 % (42-75); PLATELET COUNT 193 10^3/uL (130-400); WHITE BLOOD COUNT 5.3 10^3/uL (4.3-11.0)
[2021-04-30 08:48] LABS: ALBUMIN 4.1 GM/DL (3.2-4.5); BILIRUBIN,TOTAL 1.2 MG/DL (0.1-1.0); CALCIUM 8.9 MG/DL (8.5-10.1); CREATININE SERUM 0.78 MG/DL (0.60-1.30); POTASSIUM 3.6 MMOL/L (3.6-5.0); TOTAL PROTEIN 6.6 GM/DL (6.4-8.2)
== END ==
LOC: ONC 08:08
PROVIDERS: ATTEND Internal Medicine Hematology & Oncology
DX: C50.411 Malignant neoplasm of upper-outer quadrant of right female breast (principal); I10 Essential (primary) hypertension; I65.29 Occlusion and stenosis of unspecified carotid artery; E78.00 Pure hypercholesterolemia, unspecified; E66.9 Obesity, unspecified
CPT/HCPCS: 80053; 85025; G0463; 36415; 99213

== ENCOUNTER → 2021-06-02 | Outpatient (CLI) | payer MEDICARE, OTHER ==
--- NOTE | 2021-06-02 09:19 | Diagnostic Imaging Report ---
REASON FOR EXAM: Asthma. COPD. Shortness of breath. History of breast cancer. COMPARISON: 08/09/2020. TECHNIQUE: Thin section high resolution noncontrast-enhanced axial images were obtained through the chest in supine inspiration and expiration and in prone inspiration, as per the department of CT high resolution chest protocol. FINDINGS: The soft tissue windows demonstrate a mildly prominent heart size. There is trace pericardial effusion. There is calcified aortic and coronary atherosclerotic plaque. No axillary, mediastinal or hilar adenopathy is seen. Inspiration: The lung volumes are maintained. No consolidation or ground-glass opacities. No bronchiectasis. There are no conspicuous micronodules. No pulmonary cysts. There is focal subpleural fibrosis in the anterior aspect of the right upper lobe. Subsegmental atelectasis is seen in the right lung base. There is no evidence of honeycombing. Expiration: No evidence for focal air trapping. No overt airway collapse. Prone: No significant subpleural fibrosis or honeycombing. Limited views of the upper abdomen are unremarkable. Small hiatal hernia is seen. There is hepatic steatosis. The osseous structures are age appropriate. Cystic focus is seen in the right breast in the retroareolar region at posterior depth measuring 3.1 x 2.7 cm. There is skin thickening of the right breast. IMPRESSION: 1. No evidence of idiopathic interstitial lung disease. No bronchiectasis or air trapping. 2. Focal subpleural scarring in the anterior aspect of the right upper lobe, which may represent posttreatment changes related to the pathology in the right breast. Recommend correlation with patient history. 3. Cystic focus in the right breast at posterior depth and skin thickening of the right breast. Findings may represent posttreatment changes. Recommend correlation with patient history and prior imaging 4. Hepatic steatosis. 5. Small hiatal hernia. Dictated by: Dictated on workstation # [id number]
[2021-06-02 09:50] LABS: EOSINOPHILS # (AUTO) 0.1 10^3/uL (0.0-0.3); WHITE BLOOD COUNT 5.6 10^3/uL (4.3-11.0)
== END ==
LOC: RAD 08:15
PROVIDERS: ATTEND Internal Medicine Critical Care Medicine
DX: J44.9 Chronic obstructive pulmonary disease, unspecified (principal); J84.9 Interstitial pulmonary disease, unspecified; G47.33 Obstructive sleep apnea (adult) (pediatric); K76.0 Fatty (change of) liver, not elsewhere classified; K44.9 Diaphragmatic hernia without obstruction or gangrene; N60.11 Diffuse cystic mastopathy of right breast; Z85.3 Personal history of malignant neoplasm of breast
CPT/HCPCS: 36415; 71250; 82164; 82784; 82785; 85004; 85048; 85652; 86003; 86021; 86038; 86039; 86160; 86200; 86225; 86235; 86331; 86431; 86606

== ENCOUNTER → 2021-06-12 | Outpatient (CLI) | payer MEDICARE, OTHER ==
--- NOTE | 2021-06-13 13:33 | Diagnostic Imaging Report ---
INDICATION: Routine screening. Comparison is made with prior mammogram from 07/19/2020. 2-D and 3-D bilateral screening mammography was performed with CAD. Both breasts are heterogeneously dense, limiting the sensitivity of mammography. Post-therapeutic changes in the right breast are noted. There are some skin thickening and architectural distortion present. No discrete mass is identified. There are scattered benign-appearing parenchymal and vascular calcifications bilaterally. Axillae are unremarkable. IMPRESSION: Post-therapeutic changes in the right breast. No mammographic features suspicious for malignancy are identified. ACR BI-RADS Category 2: Benign findings. Result letter will be mailed to the patient. Note: At least 10% of breast cancer is not imaged by mammography. BI-RADS Category 2 Dictated by: Dictated on workstation # [id number]
== END ==
LOC: RAD 10:30
PROVIDERS: ATTEND Internal Medicine Hematology & Oncology
DX: Z12.31 Encounter for screening mammogram for malignant neoplasm of breast (principal)
CPT/HCPCS: 77063; 77067

== ENCOUNTER → 2021-07-29 | Outpatient (CLI) | payer MEDICARE | LOC: ONC 13:47 | PROVIDERS: ATTEND Internal Medicine Hematology & Oncology | DX: Z79.811 Long term (current) use of aromatase inhibitors (principal) | CPT/HCPCS: 82306; G0463; 36415; 99213 ==

== ENCOUNTER → 2021-10-28 | Outpatient (CLI) | payer MEDICARE | LOC: ONC 08:45 | PROVIDERS: ATTEND Internal Medicine Hematology & Oncology | DX: C50.911 Malignant neoplasm of unspecified site of right female breast (principal); C77.3 Secondary and unspecified malignant neoplasm of axilla and upper limb lymph nodes; I10 Essential (primary) hypertension; E78.00 Pure hypercholesterolemia, unspecified; E66.9 Obesity, unspecified | CPT/HCPCS: 99213 ==

== ENCOUNTER 2022-01-06 18:33 | Observation (INO) | payer MEDICARE ==
[~2022-01-06] VITALS: Ht 154.9 cm; Wt 77.8 kg
[2022-01-06] MEDS ORDERED: HYDROmorphone 2 MG/ML VIAL (DILAUDID) IV ONE (19:15)
[2022-01-06] MEDS ORDERED: NS IV 1000 ML 1,000 ML IV ONE (19:15)
--- NOTE | 2022-01-06 19:19 | ED Abdominal Pain ---
General Chief Complaint: Abdominal/GI Problems Stated Complaint: ABD PAIN,BACK PAIN Source of Information: Patient Exam Limitations: No Limitations History of Present Illness Date Seen by Provider: Jan 06, 2022 Time Seen by Provider: 19:19 Initial Comments This is a 71 yo female with history of right breast cancer, hypertension, hypoth yroidism, and GERD who presented to the ER via POV with her x- for c/o persistent back pain. Denies trauma or falls. States she was seen by her PCP last week and given Naproxen and steroid pack with no relief of symptoms. She has had 2 additional ER visits at [facility] on 01/03/22 and 01/05/2022 for intractable low back pain. She has been prescribed hydrocodone and Flexeril in addition to her Naproxen and Medrol dose pack with no relief of symptoms. She has MRI of her lumbar spine scheduled here tomorrow on 01/07 but states she does not feel she will "make it" due to severity of her pain. Also states her BP has been running high this past week (200's/100's). At this time she takes combo Losartan/HCTZ only. Has take other antihypertensives in past and was discontinued. Her PCP is Dr. Sanchez and her live truck operator is Dr. Landa. Noted to have increased abdominal distention and constipation since starting pain medication. Has had issues previously but feels her abdomen is getting bigger and she feels nauseated all the time. No emesis, stating she had lap harvey and can no longer vomit. Denies fever, rash, chills, chest pain, shortness of breath, numbness, tingling, loss of bowel or bladder function, saddle anesthesia, radiating or shooting pain down legs. Allergies and Home Medications Allergies Coded Allergies: adhesive (Verified Allergy, Severe, Rash, 10/03/20) reation to DERMABOND sulfamethoxazole (Verified Allergy, Unknown, 10/03/20) trimethoprim (Verified Allergy, Unknown, 10/03/20) Patient Home Medication List Home Medication List Reviewed: Yes Acetaminophen (Tylenol) 325 Mg Tablet, 325-650 MG PO Q6H PRN for PAIN-MILD (1- 4), (Reported) Entered as Reported by: JON RAMIREZ on 01/06/22 3146 Last Action: Reviewed Hydrocodone/Acetaminophen (Hydrocodone-Acetamin 5-325 mg) 5 Mg-325 Mg Tablet, 1 TAB PO Q6H PRN for PAIN-MODERATE (5-7), (Reported) Entered as Reported by: JON RAMIREZ on 01/06/222246 Last Action: Reviewed Levothyroxine Sodium (Levothyroxine) 50 Mcg Capsule, 50 MCG PO DAILY, (Reported) Entered as Reported by: LUCY GOINS on 10/01/20856 Last Action: Reviewed Losartan/Hydrochlorothiazide (Losartan-Hctz 100-12.5 mg Tab) 1 Each Tablet, 1 EA CH PO DAILY, (Reported) Entered as Reported by: LUCY GOINS on 10/01/20856 Last Action: Reviewed Naproxen (Naprosyn) 500 Mg Tablet, 500 MG PO BID PRN for PAIN-MILD (1-4), (Reported) Entered as Reported by: JON RAMIREZ on 01/06/222246 Last Action: Reviewed Pantoprazole Sodium (Pantoprazole Sodium) 40 Mg Tablet.dr, 40 MG PO DAILY, (Reported) Entered as Reported by: LUCY GOINS on 10/01/20856 Last Action: Reviewed Discontinued Medications Acetaminophen (Tylenol) Unknown Strength Tablet, Unknown Dose PO, (Reported) Discontinued Reason: No Longer Taking Entered as Reported by: CHLOE FALLON on 10/03/20 06 Last Action: Discontinued Hydrocodone/Acetaminophen (Hydrocodone-Acetamin 7.5-325) 1 Each Tablet, 1 EACH PO Q4H PRN for PAIN-BREAKTHROUGH Discontinued Reason: No Longer Taking Prescribed by: DORA CRAIN on 10/03/20 0832 Last Action: Discontinued Letrozole (Letrozole) 2.5 Mg Tablet, 2.5 MG PO DAILY, (Reported) Discontinued Reason: No Longer Taking Entered as Reported by: LUCY GOINS on 10/01/20856 Last Action: Discontinued Review of Systems Review of Systems Constitutional: see HPI Past Uuxtnmc-Lazktb-Scatdf Hx Seasonal Allergies Seasonal Allergies: No Past Medical History Gallbladder Respiratory: Yes Sleep Apnea Currently Using CPAP: Yes Cardiac: Yes (chf) Hypertension Neurological: No Genitourinary: No Gastrointestinal: Yes Gastroesophageal Reflux Musculoskeletal: No Endocrine: Yes Hypothyroidsim HEENT: Yes Cataract Hearing Impairment: Hard of Hearing Cancer: Yes Breast Did You Recieve Any Treatments: No What Type of Treatment Did You: Surgical Intervention Anxiety, Depression Integumentary: Yes (yony) Blood Disorders: No Physical Exam Vital Signs Capillary Refill : Height/Weight/BMI Height: 5'1.00" Weight: 187lbs. 0.0oz. 84.102546ja; 32.59 BMI Method: General Appearance: WD/WN, no apparent distress HEENT: PERRL/EOMI, normal ENT inspection, pharynx normal Neck: full range of motion, normal inspection Respiratory: lungs clear, normal breath sounds, no respiratory distress, no accessory muscle use Cardiovascular: regular rate, rhythm, no edema, no murmur Gastrointestinal: soft, distended; No rebound Extremities: normal range of motion, normal inspection Back: vertebral tenderness (lower thoracic/lumbar spine ) Neurologic/Psychiatric: no motor/sensory deficits, alert, normal mood/affect, oriented x 3 Skin: normal color, warm/dry Progress/Results/Core Measures Results/Orders Lab Results Laboratory Tests Test 01/06/22 19:00 01/06/22 19:56 Range/Units White Blood Count 7.9 4.3-11.0 10^3/uL Red Blood Count 4.89 3.80-5.11 10^6/uL Hemoglobin 16.3 H 11.5-16.0 g/dL Hematocrit 45 35-52 % Mean Corpuscular Volume 91 80-99 fL Mean Corpuscular Hemoglobin 33 25-34 pg Mean Corpuscular Hemoglobin Concent 37 H 32-36 g/dL Red Cell Distribution Width 11.8 10.0-14.5 % Platelet Count 227 130-400 10^3/uL Mean Platelet Volume 11.0 9.0-12.2 fL Immature Granulocyte % (Auto) 0 % Neutrophils (%) (Auto) 78 H 42-75 % Lymphocytes (%) (Auto) 11 L 12-44 % Monocytes (%) (Auto) 10 0-12 % Eosinophils (%) (Auto) 1 0-10 % Basophils (%) (Auto) 1 0-10 % Neutrophils # (Auto) 6.2 1.8-7.8 10^3/uL Lymphocytes # (Auto) 0.8 L 1.0-4.0 10^3/uL Monocytes # (Auto) 0.8 0.0-1.0 10^3/uL Eosinophils # (Auto) 0.0 0.0-0.3 10^3/uL Basophils # (Auto) 0.0 0.0-0.1 10^3/uL Immature Granulocyte # (Auto) 0.0 0.0-0.1 10^3/uL Sodium Level 131 L 135-145 MMOL/L Potassium Level 3.5 L 3.6-5.0 MMOL/L Chloride Level 90 L 98-107 MMOL/L Carbon Dioxide Level 20 L 21-32 MMOL/L Anion Gap 21 H 5-14 MMOL/L Blood Urea Nitrogen 22 H 7-18 MG/DL Creatinine 1.05 0.60-1.30 MG/DL Estimat Glomerular Filtration Rate 57 BUN/Creatinine Ratio 21 Glucose Level 123 H 70-105 MG/DL Calcium Level 10.4 H 8.5-10.1 MG/DL Corrected Calcium 10.0 8.5-10.1 MG/DL Total Bilirubin 2.4 H 0.1-1.0 MG/DL Aspartate Amino Transf (AST/SGOT) 29 5-34 U/L Alanine Aminotransferase (ALT/SGPT) 26 0-55 U/L Alkaline Phosphatase 87 40-136 U/L Total Protein 7.6 6.4-8.2 GM/DL Albumin 4.5 3.2-4.5 GM/DL Urine Color YELLOW Urine Clarity SL CLOUDY Urine pH 6.0 5-9 Urine Specific [place] 1.020 1.016-1.022 Urine Protein NEGATIVE NEGATIVE Urine Glucose (UA) NEGATIVE NEGATIVE Urine Ketones 1+ H NEGATIVE Urine Nitrite NEGATIVE NEGATIVE Urine Bilirubin NEGATIVE NEGATIVE Urine Urobilinogen 1.0 < = 1.0 MG/DL Urine Leukocyte Esterase NEGATIVE NEGATIVE Urine RBC (Auto) NEGATIVE NEGATIVE Urine RBC NONE /HPF Urine WBC NONE /HPF Urine Squamous Epithelial Cells 5-10 /HPF Urine Renal Epithelial Cells NONE /HPF Urine Crystals NONE /LPF Urine Bacteria NEGATIVE /HPF Urine Casts NONE /LPF Urine Mucus NEGATIVE /LPF Urine Culture Indicated NO My Orders Orders - ADE PAEZ APRN Hydromorphone Injection (Dilaudid Inject (01/06/22 19:15) Ns Iv 1000 Ml (Sodium Chloride 0.9%) (01/06/22 19:15) Cbc With Automated Diff (01/06/22 19:17) Comprehensive Metabolic Panel (01/06/22 19:17) Ua Culture If Indicated (01/06/22 19:17) Acute Abd Series (01/06/22 19:17) Ct Thoracic/Lumbar Spine Wo (01/06/22 19:17) Metoprolol Succinate (Xl) Tab (Toprol Xl (01/06/22 20:15) Hydralazine Injection (Apresoline Inject (01/06/22 20:15) Medications Given in ED Current Medications Medications Dose Ordered Sig/Ramu Route Start Time Stop Time Status Last Admin Dose Admin Hydromorphone HCl 0.5 mg ONCE ONCE IV 01/06/22 19:15 01/06/22 19:16 DC 01/06/22 19:24 0.5 MG Sodium Chloride 1,000 ml @ 0 mls/hr Q0M ONCE IV 01/06/22 19:15 01/06/22 19:16 DC 01/06/22 19:24 0 MLS/HR Progress Progress Note : Progress Note Patient examined, in severe pain. Given Dilaudid 0.5mg IVP. Repeat imaging of CT spine negative for acute fractures. Her labs negative for WBC elevation, her LFT's are within normal limits, she is noted to have elevation in total bilirubin. With her history of abd pain, bloating, vomiting, may be beneficial to obtain MRCP to further evaluate for pancreatic tumors/masses. Has history of breast cancer and previous radiation, currently on Letrozole, no lytic lesions seen on CT imaging. MRI will be beneficial to further evaluate spine. Discussed case with Dr. Miramontes, will admit observation for pain control and obtain MRI of back in AM. Pain slightly improved with Dilaudid 0.5mg IV, still 10/10 with even small movements. Will increase to 1mg IV Q4 PRN. Plan of care reviewed with patient and she is agreeable with plan. Diagnostic Imaging Diagonstic Imaging: Xray Comments [facility], [place] NAME: [facility] REC#: [id number] PT STATUS: REG ER : 1950 PHYSICIAN: ADE PAEZ APRN ADMIT DATE: 01/06/22/ER Signed Date of Exam:01/06/22 ACUTE ABD SERIES INDICATION: Abdominal bloating. Time of Exam: 7:44 PM The heart size is normal. The lungs are clear. There is no effusion or pneumothorax. There is some moderate gaseous distention of the bowel loops in the central abdomen. No definite free air is seen. No pathologic calcifications are identified. IMPRESSION: There is moderate distention of small and large bowel loops, nonspecific. No free air is detected. Dictated by: Dictated on workstation # [id number] Dict: 01/06/221946 Trans: 01/06/222000 [id number] Interpreted by: MEL STACY MD Electronically signed by: MEL STACY MD 01/06/222000 Diagonstic Imaging: CT Comments [facility], [place] NAME: RONALD CRAIN [facility] REC#: [id number] PT STATUS: REG ER : 1950 PHYSICIAN: ADE PAEZ SEISMIC OBSERVER ADMIT DATE: 01/06/22/ER Signed Date of Exam:01/06/22 CT THORACIC/LUMBAR SPINE WO PROCEDURE: CT thoracic and lumbar spine without contrast. TECHNIQUE: Multiple contiguous axial images were obtained through the thoracic and lumbar spine without the use of intravenous contrast. Sagittal and coronal reformations were then performed. All CT scans use one or more of the following dose optimizing techniques: automated exposure control, MA and/or KvP adjustment based on a patient size and exam type, or iterative reconstruction. INDICATION: Back pain. FINDINGS: CT THORACIC SPINE: There is normal kyphotic curvature to the thoracic spine. Vertebral body heights are maintained. No acute compression fracture is seen. There is generalized degenerative disc disease with variable disc space narrowing and marginal spurring. Paraspinous tissues are unremarkable. IMPRESSION: Thoracic spondylosis. No acute bony abnormality is detected. CT LUMBAR SPINE: There is normal lumbar lordotic curvature. Vertebral body heights are maintained. No acute compression fracture is seen. There is generalized degenerative disc and facet disease. Paraspinous tissues are unremarkable. IMPRESSION: Lumbar spondylosis. No acute fracture is detected. Dictated by: Dictated on workstation # [id number] Dict: 01/06/221946 Trans: 01/06/222000 AS6 [id number] Interpreted by: MEL STACY MD Electronically signed by: MEL STACY MD 01/06/222000 Departure Impression Primary Impression: Intractable low back pain Disposition: ADMITTED INPATIENT Condition: Stable Admissions Decision to Admit Reason: Admit from ER (General) Decision to Admit/Date: Jan 06, 2022 Time/Decision to Admit Time: 23:00 Departure-Patient Inst. Referrals: ADRIANNE SANCHEZ DO (PCP) Primary Care Physician ADE PAEZ APRN Jan 06, 2022 19:19
[2022-01-06 19:32] LABS: BASOPHILS % (AUTO) 1 % (0-10); EOSINOPHILS % (AUTO) 1 % (0-10); HEMATOCRIT 45 % (35-52); HEMOGLOBIN 16.3 g/dL (11.5-16.0); LYMPHOCYTES # (AUTO) 0.8 10^3/uL (1.0-4.0); LYMPHOCYTES % (AUTO) 11 % (12-44); MEAN CORPUSCULAR HEMOGLOBIN 33 pg (25-34); MEAN CORPUSCULAR HGB CONC 37 g/dL (32-36); MEAN CORPUSCULAR VOLUME 91 fL (80-99); MONOCYTES # (AUTO) 0.8 10^3/uL (0.0-1.0); MONOCYTES % (AUTO) 10 % (0-12); NEUTROPHILS # (AUTO) 6.2 10^3/uL (1.8-7.8); NEUTROPHILS % (AUTO) 78 % (42-75); PLATELET COUNT 227 10^3/uL (130-400); WHITE BLOOD COUNT 7.9 10^3/uL (4.3-11.0)
[2022-01-06 19:45] LABS: ALBUMIN 4.5 GM/DL (3.2-4.5); BILIRUBIN,TOTAL 2.4 MG/DL (0.1-1.0); CALCIUM 10.4 MG/DL (8.5-10.1); CREATININE SERUM 1.05 MG/DL (0.60-1.30); POTASSIUM 3.5 MMOL/L (3.6-5.0); TOTAL PROTEIN 7.6 GM/DL (6.4-8.2)
--- NOTE | 2022-01-06 19:51 | Diagnostic Imaging Report ---
INDICATION: Abdominal bloating. Time of Exam: 7:44 PM The heart size is normal. The lungs are clear. There is no effusion or pneumothorax. There is some moderate gaseous distention of the bowel loops in the central abdomen. No definite free air is seen. No pathologic calcifications are identified. IMPRESSION: There is moderate distention of small and large bowel loops, nonspecific. No free air is detected. Dictated by: Dictated on workstation # [id number]
--- NOTE | 2022-01-06 19:57 | Diagnostic Imaging Report ---
PROCEDURE: CT thoracic and lumbar spine without contrast. TECHNIQUE: Multiple contiguous axial images were obtained through the thoracic and lumbar spine without the use of intravenous contrast. Sagittal and coronal reformations were then performed. All CT scans use one or more of the following dose optimizing techniques: automated exposure control, MA and/or KvP adjustment based on a patient size and exam type, or iterative reconstruction. INDICATION: Back pain. FINDINGS: CT THORACIC SPINE: There is normal kyphotic curvature to the thoracic spine. Vertebral body heights are maintained. No acute compression fracture is seen. There is generalized degenerative disc disease with variable disc space narrowing and marginal spurring. Paraspinous tissues are unremarkable. IMPRESSION: Thoracic spondylosis. No acute bony abnormality is detected. CT LUMBAR SPINE: There is normal lumbar lordotic curvature. Vertebral body heights are maintained. No acute compression fracture is seen. There is generalized degenerative disc and facet disease. Paraspinous tissues are unremarkable. IMPRESSION: Lumbar spondylosis. No acute fracture is detected. Dictated by: Dictated on workstation # [id number]
[2022-01-06 20:03] LABS: BILIRUBIN,URINE NEGATIVE (NEGATIVE); CLARITY,URINE SL CLOUDY; COLOR,URINE YELLOW; GLUCOSE, URINE (UA) NEGATIVE (NEGATIVE); KETONES,URINE 1+ (NEGATIVE); LEUKOCYTE ESTERASE ,URINE NEGATIVE (NEGATIVE); NITRITE,URINE NEGATIVE (NEGATIVE); PROTEIN,URINE NEGATIVE (NEGATIVE)
[2022-01-06 20:11] LABS: BACTERIA,URINE NEGATIVE /HPF
[2022-01-06] MEDS ORDERED: meTOproloL SUCCINATE 50 MG (TOPROL XL) TAB PO SCH (20:15)
[2022-01-06] MEDS ORDERED: hydrALAZINE (APESOLINE) 20 MG/ML VIAL IV ONE (20:15)
[2022-01-06 21:32] VITALS: BP 206/99
[2022-01-06] MEDS ORDERED: hydrALAZINE (APRESOLINE) 25 MG TAB PO PRN (21:45)
[2022-01-06] MEDS ORDERED: ONDANSETRON 4 MG/2 ML (SDV) Z0FRAN IV PRN (22:00)
[2022-01-06] MEDS ORDERED: HYDROmorphone 2 MG/ML VIAL (DILAUDID) IV PRN (22:00)
[2022-01-06] MEDS ORDERED: NS IV 1000 ML 1,000 ML IV SCH (22:00)
[2022-01-06] MEDS ORDERED: ALPRAZolam 0.5 MG (XANAX) TAB PO PRN (22:00)
[2022-01-06] MEDS ORDERED: ACETAMINOPHEN 500 MG TAB (TYLENOL) PO PRN (22:00)
[2022-01-06] MEDS: KETOROLAC 15 MG/ML VIAL IVP PRN (22:03)
[2022-01-06] MEDS: amLODIPine 10 MG (NORVASC) TAB PO SCH (22:03)
[2022-01-06] MEDS ORDERED: NAPR-1071 PO (22:47)
[2022-01-06] MEDS ORDERED: ACHD5005 PO (22:47)
[2022-01-06] MEDS ORDERED: ACET325T38 PO (22:49)
[2022-01-06] MEDS ORDERED: PATIENT MAY USE OWN MED,SINGLE MED PO SCH (23:00)
[2022-01-06 23:42] VITALS: BP 185/83
[2022-01-07 03:29] VITALS: BP 156/70
[2022-01-07 05:56] LABS: BASOPHILS # (AUTO) 0.1 10^3/uL (0.0-0.1); BASOPHILS % (AUTO) 1 % (0-10); EOSINOPHILS # (AUTO) 0.1 10^3/uL (0.0-0.3); EOSINOPHILS % (AUTO) 1 % (0-10); HEMATOCRIT 37 % (35-52); HEMOGLOBIN 13.5 g/dL (11.5-16.0); LYMPHOCYTES % (AUTO) 13 % (12-44); MEAN CORPUSCULAR HEMOGLOBIN 34 pg (25-34); MEAN CORPUSCULAR HGB CONC 36 g/dL (32-36); MEAN CORPUSCULAR VOLUME 93 fL (80-99); MEAN PLATELET VOLUME 10.4 fL (9.0-12.2); MONOCYTES # (AUTO) 0.9 10^3/uL (0.0-1.0); MONOCYTES % (AUTO) 12 % (0-12); NEUTROPHILS # (AUTO) 5.1 10^3/uL (1.8-7.8); NEUTROPHILS % (AUTO) 72 % (42-75); PLATELET COUNT 181 10^3/uL (130-400); WHITE BLOOD COUNT 7.1 10^3/uL (4.3-11.0)
[2022-01-07 06:17] LABS: POTASSIUM 3.3 MMOL/L (3.6-5.0)
[2022-01-07 06:18] LABS: CALCIUM 8.8 MG/DL (8.5-10.1)
[2022-01-07 06:22] LABS: CREATININE SERUM 0.72 MG/DL (0.60-1.30)
[2022-01-07 08:20] VITALS: BP 144/77
[2022-01-07] MEDS: KETOROLAC 15 MG/ML VIAL IVP PRN (08:49)
[2022-01-07] MEDS: meTOproloL SUCCINATE 50 MG (TOPROL XL) TAB PO SCH (08:49)
[2022-01-07 12:07] VITALS: BP 157/89
[2022-01-07] MEDS: oxyCODONE/APAP 10/325MG (PERCOCET 10) TABLET PO PRN ×2 (13:03→19:58)
--- NOTE | 2022-01-07 14:11 | History & Physical-Hospitalist ---
History of Present Illness HPI/Chief Complaint Patient is a 71-year-old female who presented to the emergency department due to back pain. She reports she was getting ready for a garage sale and was moving boxes around prior to this starting. This was roughly 1 week ago. She notes that she has osteoporosis and so tried to be cautious and only moves small boxes but shortly after that she developed severe back pain. She was seen by the nurse practitioner at her primary care's office and then seen twice in the emergency department and then ultimately seen again yesterday at her primary care's office by her physician. Throughout these visits she had a CT of her abdomen done along with an x-ray. She was referred to physical therapy. She was given multiple pain medications and muscle relaxers. She states that none of this helped. She was referred for an MRI that was actually to be done today but her pain worsened and she did not feel she could make it to that appointment. She states she was suffering horribly throughout this entire time. She also complains of constipation and thought that her pants were very tight. She actually increased her pant size over the past week because she was unable to button her normal pants. She was given Dilaudid in the emergency department which improved her pain and she was admitted for further evaluation and the MRI today. Source: patient Date Seen 01/07/22 Time Seen by a Provider: 14:06 Attending Physician Edilson Sanchez DO PCP Admitting Physician: Ross Miramontes MD Attending Physician: Ross Miramontes MD Referring Physician Date of Admission Jan 06, 2022 at 8:25 pm Home Medications & Allergies Home Medications Reviewed patient Home Medication Reconciliation performed by pharmacy medication reconciliations respiratory technician and/or nursing. Patients Allergies have been reviewed. Allergies Allergies Coded Allergies adhesive (Verified Allergy, Severe, Rash, 10/03/20) reation to DERMABOND sulfamethoxazole (Verified Allergy, Unknown, 10/03/20) trimethoprim (Verified Allergy, Unknown, 10/03/20) Past Vovabxo-Nvgsjv-Bsysuq Hx Patient Social History Employed/Student: retired Tobacco Use?: No Smoking Status: Never a Smoker Smokeless Tobacco Frequency: Never a User Use of E-Cig and/or Vaping dev: No Substance use?: No Alcohol Use?: No Pt feels they are or have been: No Immunizations Up To Date Tetanus Booster (TDap): Unknown Hepatitis A: No Hepatitis B: No Seasonal Allergies Seasonal Allergies: No Current Status status: No status: No Advance Directives: Yes Advance Directive Location: Home Communicates: Verbally Primary Language: Mauritian Preferred Spoken Language: Mauritian Is interpretation needed?: No Sensory deficits: Vision impairment, Hearing impairment Implanted or Applied Medical D: CPAP, Orthopedic hardware Past Medical History Surgeries: Gallbladder Sleep Apnea Currently Using CPAP: Yes Hypertension Gastroesophageal Reflux Hypothyroidsim Cataract Hearing Impairment: Hard of Hearing Breast Did You Recieve Any Treatments: No What Type of Treatment Did You: Surgical Intervention Anxiety, Depression Blood Disorders: No Family Medical History Reviewed Nursing Family Hx No Pertinent Family Hx Review of Systems Constitutional: No chills, No fever EENTM: no symptoms reported Respiratory: no symptoms reported Cardiovascular: no symptoms reported Gastrointestinal: constipation; No nausea, No vomiting Genitourinary: no symptoms reported Musculoskeletal: see HPI Skin: no symptoms reported Psychiatric/Neurological: No Symptoms Reported Physical Exam Physical Exam Vital Signs Vital Signs - First Documented 01/06/22 01/06/22 01/07/22 18:43 21:58 07:41 Temp 37.1 Pulse 81 Resp 19 B/P (MAP) 237/106 (149) Pulse Ox 97 O2 Delivery Room Air O2 Flow Rate 0.00 FiO2 21 Capillary Refill : Height, Weight, BMI Height: 5'1.00" Weight: 187lbs. 0.0oz. 84.309537uc; 32.25 BMI Method: General Appearance: No Apparent Distress, Chronically ill, Obese HEENT: PERRL/EOMI, Moist Mucous Membranes; No Scleral Icterus (L), No Scleral Icterus (R) Neck: Normal Inspection, Supple Respiratory: Lungs Clear, No Accessory Muscle Use, No Respiratory Distress Cardiovascular: Regular Rate, Rhythm, No JVD, No Murmur Gastrointestinal: Normal Bowel Sounds, Non Tender, Soft Extremity: Normal Capillary Refill, No Calf Tenderness, No Pedal Edema; No Swelling Neurologic/Psychiatric: Alert, Oriented x3, Normal Mood/Affect; No Aphasia, No Facial Droop, No Motor Weakness Skin: Normal Color, Warm/Dry Results Results/Procedures Labs Laboratory Tests 01/06/22 19:00 01/07/22 05:38 01/08/22 05:40 Patient resulted labs reviewed. Imaging: Reviewed Imaging Report Imaging [facility] [place], [place] NAME: RONALD CRAIN [facility] REC#: [id number] PT STATUS: REG ER : 1950 PHYSICIAN: ADE PAEZ APRN ADMIT DATE: 01/06/22/ER Signed Date of Exam:01/06/22 CT THORACIC/LUMBAR SPINE WO PROCEDURE: CT thoracic and lumbar spine without contrast. TECHNIQUE: Multiple contiguous axial images were obtained through the thoracic and lumbar spine without the use of intravenous contrast. Sagittal and coronal reformations were then performed. All CT scans use one or more of the following dose optimizing techniques: automated exposure control, MA and/or KvP adjustment based on a patient size and exam type, or iterative reconstruction. INDICATION: Back pain. FINDINGS: CT THORACIC SPINE: There is normal kyphotic curvature to the thoracic spine. Vertebral body heights are maintained. No acute compression fracture is seen. There is generalized degenerative disc disease with variable disc space narrowing and marginal spurring. Paraspinous tissues are unremarkable. IMPRESSION: Thoracic spondylosis. No acute bony abnormality is detected. CT LUMBAR SPINE: There is normal lumbar lordotic curvature. Vertebral body heights are maintained. No acute compression fracture is seen. There is generalized degenerative disc and facet disease. Paraspinous tissues are unremarkable. IMPRESSION: Lumbar spondylosis. No acute fracture is detected. Dictated by: Dictated on workstation # [id number] Dict: 01/06/221946 Trans: 01/06/222000 AS6 [id number] Interpreted by: MEL STACY MD Electronically signed by: MEL TSACY MD 01/06/222000 Assessment/Plan Admission Diagnosis Intractable back pain Admission Status: Observation Assessment and Plan Intractable back pain Has had extensive workup as an outpatient Admitted for intractable pain MRI ordered Called and spoke with [facility] and will have imaging faxed over Oxycodone added for pain Dilaudid for breakthrough only HTN BP very elevated on arrival Likely due to pain Improved today Trend Continue home meds Breast Cancer Reportedly in remission I informed Dr Palacio, her oncologist, of admission Diagnosis/Problems Diagnosis/Problems (1) Intractable low back pain Status: Acute SATNAM HAYS MD Jan 07, 2022 14:11
[2022-01-07] MEDS ORDERED: LEVO50TA6 PO (14:26)
[2022-01-07] MEDS ORDERED: CYCL10TA25 PO (14:26)
[2022-01-07] MEDS ORDERED: CHOL20003 PO (14:26)
[2022-01-07] MEDS ORDERED: ACET-93 PO (14:26)
--- NOTE | 2022-01-07 15:28 | Diagnostic Imaging Report ---
PROCEDURE: MRI lumbar spine. TECHNIQUE: Multiplanar, multisequence MRI of the lumbar spine was performed without contrast. INDICATION: Lower back pain. COMPARISON: CT dated 01/06/2022. FINDINGS: For the purposes of this exam, there is transitional lumbosacral anatomy. Lumbarization of the S1 vertebral body is identified. Intervertebral disc space is present at S1-S2. Evaluation of the static alignment shows slight grade 1 anterolisthesis at L5-S1. There is no evidence of jumped facets. There is diffuse heterogeneous appearance to the marrow signal. Multiple punctate well-circumscribed areas of T1 low signal are noted scattered throughout. Acute fracture of the L1 vertebral body is identified. There is extension of the fracture line through the anterior and posterior vertebral body simmons. There is no significant retropulsion or bulging of the posterior vertebral body wall. There is no significant subsequent spinal canal stenosis. There is no evidence of involvement of the posterior elements. Vertebral body heights are overall maintained. There is however mild multilevel intervertebral disc height loss. There is also multilevel anterior and posterior disc bulging as well as multilevel ligamentum flavum laxity and facet arthropathy. This does result in multilevel spinal canal and neural foraminal stenosis. Visualized portions of the distal cord are unremarkable. Conus terminates at approximately the L1-L2 level. No abnormal intrathecal filling defects are seen. Pre and paravertebral soft tissue structures are unremarkable. Axial images demonstrate the following: T12-L1: There is mild broad-based posterior disc bulge and bilateral ligamentum flavum laxity and facet arthropathy. As a result, there is mild stenosis of the spinal canal and bilateral neural foramen. L1-L2: There is mild broad-based posterior disc bulge with bilateral ligamentum flavum laxity and facet arthropathy. As a result, there is pqnb-tx-yjcyjrnv narrowing of the spinal canal and mild stenosis of the bilateral neural foramen. L2-L3: There is broad-based posterior disc bulge with bilateral ligamentum flavum laxity and facet arthropathy. As a result, there is moderate stenosis of the spinal canal and bilateral neural foramen. L3-L4: There is broad-based posterior disc bulge with bilateral ligamentum flavum laxity and facet arthropathy. As a result, there is rgxpmadx-tm-jaakwj stenosis of the spinal canal and moderate stenosis of the bilateral neural foramen. L4-L5: There is broad-based posterior disc bulge with bilateral ligamentum flavum laxity and facet arthropathy. As a result, there is moderate stenosis of the spinal canal and vaho-bo-omgiraty stenosis of the bilateral neural foramen. L5-S1: There is broad-based posterior disc bulge and bilateral facet arthropathy. As a result, there is moderate stenosis of the spinal canal and gmie-yn-cazovpig stenosis of the bilateral neural foramen. S1-S2: There is no large disc bulge or facet arthropathy. There is no significant spinal canal or neural foraminal stenosis. IMPRESSION: 1. Acute fracture of L1. Patient may be a candidate for kyphoplasty. 2. Transitional lumbosacral anatomy with lumbarization of the S1 vertebral body as described above. 3. Moderate multilevel degenerative changes, described level by level as above. 4. Diffuse heterogeneous marrow signal with multiple punctate areas of T1 low signal scattered throughout. Given the history of breast cancer, appearance does raise concern for metastatic disease with pathologic fracture. Diffuse marrow replacement/reconversion disorder is also a consideration, but bone biopsy at time of kyphoplasty is recommended. Dictated by: Dictated on workstation # [id number]
[2022-01-07 15:36] VITALS: BP 154/70
[2022-01-07] MEDS ORDERED: polyethylene glycoL POWDER 17 GM (MIRALAX) PACK PO NR (16:30)
[2022-01-07] MEDS ORDERED: SENNA W/DOCUSATE (SENOKOT S) TABLET PO NR (16:30)
[2022-01-07] MEDS ORDERED: BISACODYL 10 MG SUPP (DULCOLAX) PR PRN (16:30)
[2022-01-07] MEDS ORDERED: RX-CYCLOBENZAPRINE 10 MG (FLEXERIL) TAB PPK#3 PO PRN (16:45)
[2022-01-07 19:48] VITALS: BP 141/85
[2022-01-07] MEDS: CYCLOBENZAPRINE 10 MG (FLEXERIL) TAB PO PRN (19:58)
[2022-01-07] MEDS: amLODIPine 10 MG (NORVASC) TAB PO SCH (19:58)
[2022-01-07] MEDS: SENNA W/DOCUSATE (SENOKOT S) TABLET PO SCH (19:58)
[2022-01-07] MEDS ORDERED: polyethylene glycoL POWDER 17 GM (MIRALAX) PACK PO SCH (21:00)
[2022-01-07 23:46] VITALS: BP 168/81
[2022-01-08 03:20] VITALS: BP 169/80
[2022-01-08] MEDS: oxyCODONE/APAP 10/325MG (PERCOCET 10) TABLET PO PRN ×2 (05:45→11:58)
[2022-01-08 05:54] LABS: HEMATOCRIT 39 % (35-52); HEMOGLOBIN 13.8 g/dL (11.5-16.0); MEAN CORPUSCULAR HEMOGLOBIN 33 pg (25-34); MEAN CORPUSCULAR HGB CONC 36 g/dL (32-36); MEAN CORPUSCULAR VOLUME 94 fL (80-99); MEAN PLATELET VOLUME 10.3 fL (9.0-12.2); PLATELET COUNT 204 10^3/uL (130-400); WHITE BLOOD COUNT 7.9 10^3/uL (4.3-11.0)
[2022-01-08 06:07] LABS: POTASSIUM 3.5 MMOL/L (3.6-5.0)
[2022-01-08 06:08] LABS: CALCIUM 8.8 MG/DL (8.5-10.1)
[2022-01-08 06:12] LABS: CREATININE SERUM 0.74 MG/DL (0.60-1.30)
[2022-01-08] MEDS ORDERED: LEVOTHYROXINE 50 MCG (LEVOTHROID) TAB PO SCH (06:30)
[2022-01-08 07:40] VITALS: BP 128/74
[2022-01-08] MEDS: SENNA W/DOCUSATE (SENOKOT S) TABLET PO SCH (08:22)
[2022-01-08] MEDS: meTOproloL SUCCINATE 50 MG (TOPROL XL) TAB PO SCH (08:22)
[2022-01-08] MEDS ORDERED: HydroCHLOROthiazide CAP/TABLET 12.5 MG TAB PO SCH (09:00)
[2022-01-08] MEDS ORDERED: NON-FORMULARY MEDICATION 1 EA EA (Cholecalciferol (Vitamin D3) (Vitamin D3) 50 MCG) PO SCH (09:00)
[2022-01-08] MEDS ORDERED: LOSARTAN 100 MG (COZAAR) TABLET PO SCH (09:00)
[2022-01-08] MEDS ORDERED: VITAMIN D3 25 MCG (1,000 UNITS) TABLET PO SCH (09:00)
[2022-01-08] MEDS ORDERED: PANTOPRAZOLE 40 MG (PROTONIX) TAB PO SCH (09:00)
--- NOTE | 2022-01-08 09:20 | Discharge Summary ---
Diagnosis/Chief Complaint Date of Admission Jan 06, 2022 at 20:25 Date of Discharge Admission Diagnosis Intractable back pain Primary Care Discharge Diagnosis (1) Intractable low back pain Status: Acute Discharge Summary Discharge Physical Exam Allergies: Coded Allergies: adhesive (Verified Allergy, Severe, Rash, 10/03/20) reation to DERMABOND sulfamethoxazole (Verified Allergy, Unknown, 10/03/20) trimethoprim (Verified Allergy, Unknown, 10/03/20) Vitals & I&Os Vital Signs Date Time Temp Pulse Resp B/P (MAP) Pulse Ox O2 Delivery O2 Flow Rate FiO2 01/08/22 08:00 96 Room Air 0.00 01/08/22 07:40 36.4 62 18 128/74 (92) 01/06/22 21:58 21 General Appearance: No Apparent Distress, WD/WN Cardiovascular: Regular Rate, Rhythm, No Murmur Neurologic/Psychiatric: Alert, Oriented x3 Hospital Course Patient was admitted to the hospital secondary to intractable back pain. She had a negative CT in the emergency room and earlier that week at an outside hospital and negative CT spine as well. An MRI was obtained and revealed an acute L1 fracture. I did discuss the case with Dr. RONDON with [facility] who recommended outpatient follow-up if pain is controlled and bracing. She was seen by physical therapy and brace was placed and she did very well. Her pain was controlled. She is to follow-up with Dr. RONDON as an outpatient. I did call and update her primary care physician of this as well. She is to follow-up with Dr. Sanchez in the next week. Of note her MRI did show punctate areas in T1 concerning for metastatic disease with a pathological fracture. I did inform the patient of this and informed her of the importance of following up on this and possible need for biopsy of this area when she sees Dr. RONDON. She expressed understanding. Dr Sanchez was informed as well. Labs (last 24 hrs) Laboratory Tests 01/08/22 05:40: White Blood Count 7.9, Red Blood Count 4.13, Hemoglobin 13.8, Hematocrit 39, Mean Corpuscular Volume 94, Mean Corpuscular Hemoglobin 33, Mean Corpuscular Hemoglobin Concent 36, Red Cell Distribution Width 12.0, Platelet Count 204, Mean Platelet Volume 10.3, Sodium Level 130L, Potassium Level 3.5L, Chloride Level 98, Carbon Dioxide Level 23, Anion Gap 9, Blood Urea Nitrogen 18, Creatinine 0.74, Estimat Glomerular Filtration Rate 86, BUN/Creatinine Ratio 24, Glucose Level 99, Calcium Level 8.8 Patient resulted labs reviewed. Pending Labs Laboratory Tests 01/08/22 05:40: White Blood Count 7.9, Red Blood Count 4.13, Hemoglobin 13.8, Hematocrit 39, Mean Corpuscular Volume 94, Mean Corpuscular Hemoglobin 33, Mean Corpuscular Hemoglobin Concent 36, Red Cell Distribution Width 12.0, Platelet Count 204, Mean Platelet Volume 10.3, Sodium Level 130, Potassium Level 3.5, Chloride Level 98, Carbon Dioxide Level 23, Anion Gap 9, Blood Urea Nitrogen 18, Creatinine 0.74, Estimat Glomerular Filtration Rate 86, BUN/Creatinine Ratio 24, Glucose Level 99, Calcium Level 8.8 Imaging: Reviewed Imaging Report Discussion & Recommendations Discharge Planning: >30 minutes discharge planning Discharge Home Medications: Active Scripts Active Percocet 10-325 mg Tablet (Oxycodone HCl/Acetaminophen) 1 Each Tablet 1 Tab PO Q6H PRN Reported Vitamin D3 (Cholecalciferol (Vitamin D3)) 50 Mcg (2000 Unit) Capsule 50 Mcg PO DAILY Levothyroxine Sodium 50 Mcg Tablet 50 Mcg PO DAILY Acetaminophen 500 Mg Tablet 500 Mg PO Q4- 6H Pantoprazole Sodium 40 Mg Tablet.dr 40 Mg PO DAILY Losartan-Hctz 100-12.5 mg Tab (Losartan/Hydrochlorothiazide) 1 Each Tablet 1 Each PO DAILY She was informed to stop all other pain medications. Instructions to patient/family Please see electronic discharge instructions given to patient. Copy Copies To 1: ОЛЕГ RONDON MD; ADRIANNE SANCHEZ KATELYN M MD Jan 08, 2022 09:20
[2022-01-08] MEDS ORDERED: OXYC1TAB12 PO (09:21)
--- NOTE | 2022-01-08 09:22 | Discharge Inst-Simple/Standard ---
Discharge Inst-Standard Discharge Medications New, Converted or Re-Newed RX: Transmitted to Pharmacy Patient Instructions/Follow Up Plan of Care/Instructions/FU: Please continue to take your medications as written. Please follow up with your primary care doctor to follow up this hospital stay. Activity as Tolerated: Yes Discharge Diet: Cardiac Diet Return to The Hospital For: Chest pain, back pain, shortness of breath, fever, weakness, if you feel you are getting worse. SATNAM HAYS MD Jan 08, 2022 09:22
--- NOTE | 2022-01-08 10:07 | Physical Therapy Evaluation ---
PT Evaluation-General Medical Diagnosis Admission Date Jan 06, 2022 at 20:25 Medical Diagnosis: intractable back pain Onset Date: Jan 06, 2022 Therapy Diagnosis Therapy Diagnosis: debility Height/Weight Height (Feet): 5 Height (Inches): 1.00 Weight (Pounds): 187 Weight (Ounces): 0.0 Precautions Precautions/Isolations: Standard Precautions Referral Physician: Kris Reason for Referral: Evaluation/Treatment Referral Comments issue back brace Medical History Pertinent Medical History: GERD, HTN, Hypothroidism History of Falls (past yr): Yes Prior Surgery (last 100 days): No Additional Medical History breast cancer with lumpectomy Current History ER secondary to intractable back pain (MRI shows acute L1 fracture) Reviewed History: Yes Social History Home: Single Level Current Living Status: Alone Entry Into Home: Stairs With Railing PT Steps Into Home: 5 Prior Prior Level of Function SCALE: Activities may be completed with or without assistive devices. 4-Kkelekzmjz-waepfxp completes the activity by him/herself with no assistance from a helper. 5-Set-up or Clean-up Assistance-helper sets up or cleans up; patient completes activity. [place] assists only prior to or following the activity. 4-Supervision or Touching Assistance-helper provides verbal cues and/or touching/steadying and/or contact guard assistance as patient completes activity. Assistance may be provided throughout the activity or intermittently. 3-Partial/Moderate Assistance-helper does LESS THAN HALF the effort. [place] lifts, holds or supports trunk or limbs, but provides less than half the effort. 2-Substantial/Maximal Assistance-helper does MORE THAN HALF the effort. [place] lifts or holds trunk or limbs and provides more than half the effort. 5-Rwlcgrbou-gwjdye does ALL the effort. Patient does none of the effort to complete the activity. Or, the assistance of 2 or more helpers is required for the patient to complete the activity. If activity was not attempted, code reason: 7-Patient Refused. 9-Not Applicable-not attempted and the patient did not perform the activity before the current illness, exacerbation or injury. 10-Not Attempted due to Environmental Limitations-(lack of equipment, weather restraints, etc.). 88-Not Attempted due to Medical Conditions or Safety Concerns. Bed Mobility: 6 Transfers (B,C,W/C): 6 Gait: 6 Stairs: 6 Indoor Mobility (Ambulation): Independent Stairs: Independent Prior Devices Use: None Prior Device Use: FWW PT Evaluation-Current Subjective Patient agrees to PT. Pain Numeric Pain Scale: 5-Moderate Pain Location: Lower Location Body Site: Back Pain Description: Acute Objective Patient Orientation: Normal For Age ROM/Strength ROM Lower Extremities bilateral LE WFL Strength Lower Extremities 4-/5 grossly bilateral LE all planes Integumentary/Posture Integumentary refer to nursing notes Bowel Incontinence: No Bladder Incontinence: No Posture slight trunk flexed posture due to back pain Neuromuscular (Tone, Coordination, Reflexes) grossly intact Sensory Vision: Wears Glasses Hearing: Functional Transfers Lying to Sitting/Side of Bed(Q: 6 Sit to Stand (QC): 4 Chair/Udy-jo-Ljpxa Xfer(QC): 4 Toilet Transfer (QC): 5 Gait Does the Patient Walk?: Yes Mode of Locomotion: Walk Anticipated Mode of Locomotion: Walk Walk 10 feet (QC): 4 Walk 50 ft with 2 Turns(QC): 4 Walk 150 ft (QC): 4 Walking 10ft/uneven surface-QC: 4 Distance: 175' Gait Assistive Device: FWW Comments/Gait Description slow, steady functional gait sequence Stairs #of Steps: 5 1 Step (curb) (QC): 4 4 Steps (QC): 4 Walking Assistive Device: Walker Balance Sitting Static: Normal Sitting Dynamic: Normal Standing Static: Fair Standing Dynamic: Fair Treatment LSO issued by PT with education for donning and doffing. Patient performed with mild difficulty due to strength of velcro. Patient instructed to wear brace with up and to remove for bed and bathing. Assessment/Needs Patient to dismiss to home on this date and to follow up with surgeon per RN report. Patient performed donning and doffing LSO with mild difficulty. Rehab Potential: Fair PT Plan Treatment/Plan Treatment Plan: Discontinue PT, goals met Treatment Plan: Education Treatment Duration: Jan 08, 2022 Frequency: 1 time per week Estimated Hrs Per Day: .25 hour per day Patient and/or Family Agrees t: Yes Safety Risks/Education Patient Education: Gait Training, Steps, Reviewed Don/Doff Brace, Safety Issues Teaching Recipient: Patient Teaching Methods: Demonstration, Discussion Response to Teaching: Verbalize Understanding, Return Demonstration Time/GCodes Time In: 835 Time Out: 857 Total Billed Treatment Time: 22 Total Billed Treatment 1 visit EVMod 22 min ISAÍAS CEJA PT Jan 08, 2022 10:07
[2022-01-08 11:30] VITALS: BP 159/73
[2022-01-08] MEDS: CYCLOBENZAPRINE 10 MG (FLEXERIL) TAB PO PRN (11:58)
[2022-01-08] MEDS ORDERED: ONDANSETRON 4 MG (ZOFRAN) ORAL DISSOLVE TAB PO NR (13:00)
--- NOTE | 2022-01-08 13:25 | Physical Therapy Progress Note ---
Therapy Progress Note Education with patient on LSO wear and use due to patient has increase c/o abdominal discomfort and nausea since LSO was place on patient this a.m. Patient reports she has not had a bowel movement for over a week and the LSO brace causes more pressure on her abdomen. PT educated patient on physician ordering LSO to address L1 fracture and to prevent patient from bending causing possible negative side effects. Patient continues to states it causes her more discomfort and doesn't want to wear it. This PT educated patient, again, on its importance and use to prevent possible issues. Patient then voices understanding but also reports frustration with the process. This PT attempted to resolve discomfort by readjusting brace and tightness. Patient continues to c/o discomfort and constipation. RN is aware. 1 visit ISAÍAS CEJA PT Jan 08, 2022 13:25
[2022-01-08 13:40] VITALS: BP 159/73
== END 2022-01-08 11:48 | disposition home or self-care (01) ==
LOC: EDUNIT# 18:33 → ER 18:36 → 4TH 20:25 → UNDOADMOB 20:25 → 4TH 21:23 → UNDODISOB 01-08 11:48
PROVIDERS: ADMIT Internal Medicine; ATTEND Internal Medicine
DX: M54.50 Low back pain, unspecified (principal)
CPT/HCPCS: 72128; 72131; 72148; 74022; 80048 ×2; 80053; 81000; 85025 ×2; 85027; 94664; 94760; 96361 ×3; 96374; 96375 ×2; 96376; 97162; 99283; G0378; 36415; 99282

== ENCOUNTER → 2022-04-02 | Outpatient (CLI) | payer MEDICARE ==
[~2022-04-02] MED LIST changes: +ACET-93 PO; +ACHD5005 PO; +CHOL20003 PO; +CYCL10TA25 PO; +LEVO50TA6 PO; +NAPR-1071 PO; +OXYC1TAB12 PO
--- NOTE | 2022-04-02 20:12 | Diagnostic Imaging Report ---
Exam: Nuclear medicine whole body bone scan. Date: April 02, 2022. Indication: 71-year-old female, history of breast cancer. Evaluation for bone metastasis. Comparison: Nuclear medicine whole body bone scan August 09, 2020. MR lumbar spine January 07, 2022. CT thoracic and lumbar spine January 06, 2022. CT chest June 02, 2021. Findings: Radiotracer avid foci involving bilateral ribs. These are new since the prior bone scan. There is also abnormal radiotracer uptake at the level of the skull which is more prominent since the prior bone scan. There is a radiotracer avid focus at the level of the lower cervical spine which also appears to be an interval change. Degenerative related radiotracer uptake in the region of the right first carpometacarpal joint and bilateral knees. Impression: 1. New radiotracer avid foci involving bilateral ribs since prior bone scan these may relate to sequela of multiple bilateral rib fractures, especially correlating with prior CT chest exam on June 02, 2021. Correlation with current CT imaging of the chest is recommended. 2. New radiotracer avid lesion of the lower cervical spine. Although this is potentially degenerative related, bone metastasis at this location is included in the differential diagnosis. Dedicated cross-sectional imaging of the cervical spine is recommended. Dictated by: Dictated on workstation # [id number]
== END ==
LOC: CARD 08:40
PROVIDERS: ATTEND Nurse Practitioner Adult Health
DX: C50.411 Malignant neoplasm of upper-outer quadrant of right female breast (principal); C77.3 Secondary and unspecified malignant neoplasm of axilla and upper limb lymph nodes; C79.51 Secondary malignant neoplasm of bone; R93.7 Abnormal findings on diagnostic imaging of other parts of musculoskeletal system
CPT/HCPCS: 78306; A9503

== ENCOUNTER 2022-07-20 16:31 | Emergency (ER) | payer MEDICARE ==
[~2022-07-20] VITALS: Ht 154.9 cm; Wt 68.0 kg
[2022-07-20] MEDS ORDERED: LACTATED RINGERS 1,000 ML IV ONE (17:45)
[2022-07-20] MEDS ORDERED: ONDANSETRON 4 MG/2 ML (SDV) Z0FRAN IVP ONE (17:45)
[2022-07-20] MEDS ORDERED: fentaNYL INJ 100 MCG/2 ML AMP IVP STA (17:46)
[2022-07-20 17:49] LABS: BASOPHILS % (AUTO) 1 % (0-10); EOSINOPHILS % (AUTO) 0 % (0-10); HEMATOCRIT 39 % (35-52); HEMOGLOBIN 14.1 g/dL (11.5-16.0); LYMPHOCYTES # (AUTO) 0.5 10^3/uL (1.0-4.0); LYMPHOCYTES % (AUTO) 7 % (12-44); MEAN CORPUSCULAR HEMOGLOBIN 34 pg (25-34); MEAN CORPUSCULAR HGB CONC 36 g/dL (32-36); MEAN CORPUSCULAR VOLUME 93 fL (80-99); MEAN PLATELET VOLUME 9.7 fL (9.0-12.2); MONOCYTES # (AUTO) 0.4 10^3/uL (0.0-1.0); MONOCYTES % (AUTO) 5 % (0-12); NEUTROPHILS # (AUTO) 6.9 10^3/uL (1.8-7.8); NEUTROPHILS % (AUTO) 87 % (42-75); PLATELET COUNT 225 10^3/uL (130-400)
--- NOTE | 2022-07-20 17:57 | ED GI ---
General Chief Complaint: Abdominal/GI Problems Stated Complaint: VOMITING BOWL BLOCKAGE Nursing Triage Note: PT AMB TO RM 1 WITH COMPLAINT OF ABD PAIN, N/V. STATES SHE HAS NOT HAD A BOWEL MOVEMENT SINCE LAST WEDNESDAY. STATES SHE USED A SUPPOSITORY TODAY, WITH NO RELIEF. WAS INSTRUCTED BY DR TAMAYO TO COME TO ER FOR FURTHER EVALUATION. Source of Information: Patient (DIFFICULT HISTORIAN) History of Present Illness Date Seen by Provider: Jul 20, 2022 Time Seen by Provider: 17:40 Initial Comments PT ARRIVES VIA POV FROM HOME, WALKS IN WITH A WALKER PT STATES FOR THE LAST WEEK SHE HAS HAD ABDOMINAL PAIN, NO BM X 1 WEEK NAUSEA HAS BEEN ALL WEEK, BUT TODAY BEGAN VOMITING--SHE HAS VOMITED X 3 TODAY PT TOOK 1 SUPPOSITORY TODAY AT [facility] WITHOUT RELIEF, HAS NOT TAKEN ANYTHING ELSE FOR SYMPTOMS STATES SHE CANNOT HAVE A BM, CANNOT URINATE, CANNOT EAT OR DRINK HAS NOT TAKEN ANY OF HER MEDICATIONS TODAY PT HAD THIS ONCE BEFORE IN THE PAST, AND USED A SUPPOSITORY AND IT RELIEVED SYMPTOMS PT HAS BREAST CANCER WITH BONE METS--SEEING DR. SANCHEZ FOR ONCOLOGY SHE IS PRESCRIBED OXYCODONE AND MORPHINE FOR PAIN DUE TO METS. SHE HAS HAD PRIOR HIATAL HERNIA REPAIR AND CHOLECYSTECTOMY SHE HAS HTN, CHF, HYPOTHYROIDISM, GERD SHE HAS NOT SOUGHT CARE UNTIL NOW FOR THIS PROBLEM PCP: DR. CAMPUZANO ONCOLOGY: DR. SANCHEZ Allergies and Home Medications Allergies Coded Allergies: adhesive (Verified Allergy, Severe, Rash, 10/03/20) reation to DERMABOND sulfamethoxazole (Verified Allergy, Unknown, 10/03/20) trimethoprim (Verified Allergy, Unknown, 10/03/20) Patient Home Medication List Acetaminophen (Acetaminophen) 500 Mg Tablet, 500 MG PO Q4- 6H, (Reported) Entered as Reported by: CLARK MILLER on 01/07/221425 Cholecalciferol (Vitamin D3) (Vitamin D3) 50 Mcg (2000 Unit) Capsule, 50 MCG PO DAILY, (Reported) Entered as Reported by: CLARK MILLER on 01/07/221425 Levothyroxine Sodium (Levothyroxine Sodium) 50 Mcg Tablet, 50 MCG PO DAILY, (Reported) Entered as Reported by: CLARK MILLER on 01/07/221425 Losartan/Hydrochlorothiazide (Losartan-Hctz 100-12.5 mg Tab) 1 Each Tablet, 1 EACH PO DAILY, (Reported) Entered as Reported by: LUCY GOINS on 10/01/20 0857 Oxycodone HCl/Acetaminophen (Percocet 10-325 mg Tablet) 1 Each Tablet, 1 TAB PO Q6H PRN for PAIN-MODERATE (5-7) Prescribed by: SATNAM HAYS on 01/08/22 0921 Pantoprazole Sodium (Pantoprazole Sodium) 40 Mg Tablet.dr, 40 MG PO DAILY, (Reported) Entered as Reported by: LUCY GOINS on 10/01/20 0857 Review of Systems Review of Systems Constitutional: no symptoms reported Respiratory: No Symptoms Reported Cardiovascular: No Symptoms Reported Gastrointestinal: See HPI, Abdominal Pain, Constipated, Nausea, Poor Appetite, Poor Fluid Intake, Vomiting Genitourinary: See HPI Musculoskeletal: other (CHRONIC GENERALIZED PAIN ) Psychiatric/Neurological: Anxiety Endocrine: No Symptoms Reported Hematologic/Lymphatic: No Symptoms Reported Past Zbnodmi-Wlocql-Zmkhwr Hx Patient Social History Tobacco Use?: No Use of E-Cig and/or Vaping dev: No Substance use?: No Alcohol Use?: No Pt feels they are or have been: No Seasonal Allergies Seasonal Allergies: No Past Medical History Surgery/Hospitalization HX: HTN, GERD, BREAST CA, HYPOTHYROID Surgeries: Yes Abdominal, Breast, Gallbladder Respiratory: Yes Sleep Apnea Currently Using CPAP: Yes Cardiac: Yes (CHF) Hypertension Neurological: No Genitourinary: No Gastrointestinal: Yes (S/P HIATAL HERNIA REPAIR AND CHOLECYSTECTOMY) Gastroesophageal Reflux, Hiatal Hernia, Gall Bladder Disease Musculoskeletal: Yes (BONE METS;LUMBAR COMPRESSION FX) Arthritis, Chronic Back Pain, Fractures Endocrine: Yes Hypothyroidsim HEENT: Yes Cataract Hearing Impairment: Hard of Hearing Cancer: Yes Breast Did You Recieve Any Treatments: Yes What Type of Treatment Did You: Radiation, Surgical Intervention BREAST CANCER WITH BONE METS--S/P SURGERY / LUMPECTOMY RIGHT BREAST AND RADIATION Psychosocial: Yes Anxiety, Depression Integumentary: Yes (ROSACEA) Blood Disorders: No Family Medical History No Pertinent Family Hx PAST SURGICAL HISTORY: -CHOLECYSTECTOMY -HIATAL HERNIA REPAIR 09/2019 -RIGHT BREAST LUMPECTOMY AND SENTINEL LYMPH NODE BIOPSY 10/03/2020 Physical Exam Vital Signs Vital Signs - First Documented 07/20/22 17:32 Temp 36.5 Pulse 98 Resp 16 B/P (MAP) 163/70 (101) Pulse Ox 100 O2 Delivery Room Air Capillary Refill : Height/Weight/BMI Height: 5'1.00" Weight: 187lbs. 0.0oz. 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, no motor/sensory deficits, alert, oriented x 3, other (VERY ANXIOUS) Skin: normal color, warm/dry Progress/Results/Core Measures Results/Orders Lab Results Laboratory Tests Test 07/20/22 17:39 07/20/22 18:04 Range/Units White Blood Count 8.0 4.3-11.0 10^3/uL Red Blood Count 4.16 3.80-5.11 10^6/uL Hemoglobin 14.1 11.5-16.0 g/dL Hematocrit 39 35-52 % Mean Corpuscular Volume 93 80-99 fL Mean Corpuscular Hemoglobin 34 25-34 pg Mean Corpuscular Hemoglobin Concent 36 32-36 g/dL Red Cell Distribution Width 13.1 10.0-14.5 % Platelet Count 225 130-400 10^3/uL Mean Platelet Volume 9.7 9.0-12.2 fL Immature Granulocyte % (Auto) 0 % Neutrophils (%) (Auto) 87 H 42-75 % Lymphocytes (%) (Auto) 7 L 12-44 % Monocytes (%) (Auto) 5 0-12 % Eosinophils (%) (Auto) 0 0-10 % Basophils (%) (Auto) 1 0-10 % Neutrophils # (Auto) 6.9 1.8-7.8 10^3/uL Lymphocytes # (Auto) 0.5 L 1.0-4.0 10^3/uL Monocytes # (Auto) 0.4 0.0-1.0 10^3/uL Eosinophils # (Auto) 0.0 0.0-0.3 10^3/uL Basophils # (Auto) 0.0 0.0-0.1 10^3/uL Immature Granulocyte # (Auto) 0.0 0.0-0.1 10^3/uL Neutrophils % (Manual) 86 % Lymphocytes % (Manual) 7 % Monocytes % (Manual) 6 % Basophils % (Manual) 1 % Blood Morphology Comment NORMAL Sodium Level 134 L 135-145 MMOL/L Potassium Level 3.4 L 3.6-5.0 MMOL/L Chloride Level 96 L 98-107 MMOL/L Carbon Dioxide Level 22 21-32 MMOL/L Anion Gap 16 H 5-14 MMOL/L Blood Urea Nitrogen 9 7-18 MG/DL Creatinine 0.95 0.60-1.30 MG/DL Estimat Glomerular Filtration Rate 64 BUN/Creatinine Ratio 9 Glucose Level 184 H 70-105 MG/DL Calcium Level 9.8 8.5-10.1 MG/DL Corrected Calcium 9.5 8.5-10.1 MG/DL Magnesium Level 1.6 1.6-2.4 MG/DL Total Bilirubin 2.1 H 0.1-1.0 MG/DL Aspartate Amino Transf (AST/SGOT) 19 5-34 U/L Alanine Aminotransferase (ALT/SGPT) 16 0-55 U/L Alkaline Phosphatase 266 H 40-136 U/L Total Protein 7.3 6.4-8.2 GM/DL Albumin 4.4 3.2-4.5 GM/DL Amylase Level 27 25-125 U/L Lipase 13 8-78 U/L Urine Color YELLOW Urine Clarity CLEAR Urine pH 7.0 5-9 Urine Specific [place] <=1.005 1.016-1.022 Urine Protein NEGATIVE NEGATIVE Urine Glucose (UA) NEGATIVE NEGATIVE Urine Ketones NEGATIVE NEGATIVE Urine Nitrite NEGATIVE NEGATIVE Urine Bilirubin NEGATIVE NEGATIVE Urine Urobilinogen 1.0 < = 1.0 MG/DL Urine Leukocyte Esterase NEGATIVE NEGATIVE Urine RBC (Auto) NEGATIVE NEGATIVE Urine RBC NONE /HPF Urine WBC RARE /HPF Urine Squamous Epithelial Cells 5-10 /HPF Urine Crystals NONE /LPF Urine Bacteria TRACE /HPF Urine Casts NONE /LPF Urine Mucus NEGATIVE /LPF Urine Culture Indicated NO My Orders Orders - STANTON JASSO DO Ed Iv/Invasive Line Start (07/20/22 17:39) Monitor-Rhythm Ecg Trace Only (07/20/22 17:39) Amylase (07/20/22 17:39) Cbc With Automated Diff (07/20/22 17:39) Comprehensive Metabolic Panel (07/20/22 17:39) Lipase (07/20/22 17:39) Magnesium (07/20/22 17:39) Ua Culture If Indicated (07/20/22 17:39) Ed Iv/Invasive Line Start (07/20/22 17:39) Lactated Ringers (Lr 1000 Ml Iv Solution (07/20/22 17:45) Ondansetron Injection (Zofran Injectio (07/20/22 17:45) Catheter(Urinary) Insert & Ass 03,15 (07/20/22 17:46) Ct Abdomen/Pelvis Wo (07/20/22 17:46) Acute Abd Series (07/20/22 17:46) Lidocaine 2% (Urojet) (Xylocaine Urojet) (07/20/22 18:00) Fentanyl Inj (Sublimaze Injection) (07/20/22 17:46) Manual Differential (07/20/22 17:39) Medications Given in ED Current Medications Medications Dose Ordered Sig/Ramu Route Start Time Stop Time Status Last Admin Dose Admin Lactated Ringer's 1,000 ml @ 0 mls/hr Q0M ONCE IV 07/20/22 17:45 07/20/22 17:46 DC 07/20/22 17:55 0 MLS/HR Lidocaine HCl 10 ml ONCE ONCE TOP 07/20/22 18:00 07/20/22 18:01 DC 07/20/22 17:55 10 ML Ondansetron HCl 4 mg ONCE ONCE IVP 07/20/22 17:45 07/20/22 17:46 DC 07/20/22 17:54 4 MG Vital Signs/I&O 07/20/22 17:32 Temp 36.5 Pulse 98 Resp 16 B/P (MAP) 163/70 (101) Pulse Ox 100 O2 Delivery Room Air Blood Pressure Mean: 101 Progress Progress Note : Progress Note GIVEN: -IV FLUIDS -ZOFRAN -FENTANYL REVIEWED PRIOR RECORDS-SINGLE ADMIT IN 2021 FOR BACK PAIN; OUTPATIENT SURGERY 2020 Diagnostic Imaging Comments PER RADIOLOGIST REPORTS AT 1848 Reviewed: Reviewed by Me Departure Impression Primary Impression: Constipation Additional Impressions: Fecal impaction in rectum Chronic prescription opiate use Disposition: HOME, SELF-CARE Condition: Stable Departure-Patient Inst. Decision time for Depature: 19:05 Referrals: ADRIANNE CAMPUZANO DO (PCP) Primary Care Physician Patient Instructions: Constipation, Adult ED, Home Treatments for Constipation When You Have Cancer, Fecal Impaction (DC) Add. Discharge Instructions: YOU MAY TAKE MIRALAX EVERY 1-2 HOURS FOR BM, AND USE EVERY DAY YOU MAY CONTINUE YOUR REGULAR MEDICATIONS PRESCRIBED INCREASE YOUR WATER INTAKE FOLLOW UP WITH YOUR DR IF SYMPTOMS PERSIST All discharge instructions reviewed with patient and/or family. Voiced understanding. STANTON JASSO DO Jul 20, 2022 17:57
[2022-07-20 18:00] LABS: ALBUMIN 4.4 GM/DL (3.2-4.5); POTASSIUM 3.4 MMOL/L (3.6-5.0)
[2022-07-20] MEDS ORDERED: LIDOCAINE UROJET 2% GEL 10 ML PKG TOP ONE (18:00)
[2022-07-20 18:01] LABS: CALCIUM 9.8 MG/DL (8.5-10.1)
[2022-07-20 18:03] LABS: TOTAL PROTEIN 7.3 GM/DL (6.4-8.2)
[2022-07-20 18:04] LABS: BILIRUBIN,TOTAL 2.1 MG/DL (0.1-1.0)
[2022-07-20 18:06] LABS: CREATININE SERUM 0.95 MG/DL (0.60-1.30)
[2022-07-20 18:09] LABS: MAGNESIUM 1.6 MG/DL (1.6-2.4)
[2022-07-20 18:12] LABS: BILIRUBIN,URINE NEGATIVE (NEGATIVE); CLARITY,URINE CLEAR; COLOR,URINE YELLOW; GLUCOSE, URINE (UA) NEGATIVE (NEGATIVE); KETONES,URINE NEGATIVE (NEGATIVE); LEUKOCYTE ESTERASE ,URINE NEGATIVE (NEGATIVE); NITRITE,URINE NEGATIVE (NEGATIVE); PROTEIN,URINE NEGATIVE (NEGATIVE)
[2022-07-20 18:16] LABS: BASOPHILS % (MANUAL) 1 %; LYMPHOCYTES % (MANUAL) 7 %; MONOCYTES % (MANUAL) 6 %; NEUTROPHILS % (MANUAL) 86 %
[2022-07-20 18:17] LABS: RBC MORPH NORMAL
[2022-07-20 18:21] LABS: BACTERIA,URINE TRACE /HPF; WBC,URINE RARE /HPF
--- NOTE | 2022-07-20 18:40 | Diagnostic Imaging Report ---
PROCEDURE: CT abdomen and pelvis without contrast. TECHNIQUE: Multiple contiguous axial images were obtained through the abdomen and pelvis without the use of intravenous contrast. Auto Exposure Controls were utilized during the CT exam to meet ALARA standards for radiation dose reduction. INDICATION: Abdominal pain and distention Lung bases are clear. There is fatty infiltration of the liver. Gallbladder surgically absent. Pancreas is unremarkable. Spleen appears normal. Adrenals are normal. Kidneys are unremarkable. Small bowel is nondilated. There is a moderate amount of stool in the colon. There may be a rectal fecal impaction. Uterus is present. There is a Velasco catheter in the urinary bladder. There is aortic atherosclerosis but no aneurysm or dissection. Patient has had kyphoplasty of L1 and L3. There is no acute compression fracture. IMPRESSION: Fecal stasis. No acute abnormality seen Dictated by: Dictated on workstation # [id number]
--- NOTE | 2022-07-20 18:45 | Diagnostic Imaging Report ---
INDICATION: Abdominal pain. EXAMINATION: KUB, 6:43 p.m. FINDINGS: The lungs are clear. There is a skin nodule in the right lower anterior chest. Gallbladder is surgically absent. Patient has had kyphoplasties of L1 and L3. Bowel gas pattern is unremarkable. IMPRESSION: No acute abnormalities in the abdomen. Dictated by: Dictated on workstation # [id number]
[2022-07-20 19:43] VITALS: BP 159/66
== END 2022-07-20 20:06 | disposition home or self-care (01) ==
LOC: EDUNIT# 16:31 → ER 16:34
DX: K56.41 Fecal impaction (principal); F11.90 Opioid use, unspecified, uncomplicated; C50.919 Malignant neoplasm of unspecified site of unspecified female breast; C79.51 Secondary malignant neoplasm of bone; Z92.3 Personal history of irradiation; Z90.49 Acquired absence of other specified parts of digestive tract; Z98.890 Other specified postprocedural states
CPT/HCPCS: 36415; 51702; 74022; 74176; 80053; 81000; 82150; 83690; 83735; 85007; 85027

== ENCOUNTER → 2022-07-20 | Outpatient (CLI) | payer MEDICARE ==
[~2022-07-20] VITALS: Ht 154.9 cm; Wt 72.0 kg
[2022-07-20 20:31] VITALS: BP 169/82
[2022-07-20 21:57] VITALS: BP 155/79
== END ==
LOC: 4THo 20:12
PROVIDERS: ATTEND Emergency Medicine
DX: K62.9 Disease of anus and rectum, unspecified (principal)